=== PATIENT | male | born 1965 | race Hispanic/Latino ===

== ENCOUNTER 2017-08-01 05:56 | Emergency (ER) | payer MEDICAID, OTHER ==
[2017-08-01 05:56] VITALS: BMI 31.8
[2017-08-01] MEDS ORDERED: Alum-Mag Hydrox-Simethicone Susp (30 mL) PO STA (06:28)
[2017-08-01] MEDS ORDERED: Alum-Mag Hydrox-Simethicone Susp (30 mL) ONE (06:30)
--- NOTE | 2017-08-01 06:55 | ED PDOC ---
HPI: Abdomen Time Seen by Provider: 08/01/17 06:21 Chief Complaint (Nursing): Chest Pain Chief Complaint (Provider): Abdominal Pain History Per: Patient History/Exam Limitations: no limitations Onset/Duration Of Symptoms: Hrs (x8-10 hours) Outside of [place] travel?: No Current Symptoms Are (Timing): Still Present Context: Food (Pizza & V8 juice) Location Of Pain/Discomfort: Epigastric Associated Symptoms: Chest Pain. denies: Nausea, Vomiting, Back Pain Additional Complaint(s): 51 year old male presents to ED with complaints of epigastric pain x8-10 hours and has a past medical history of Hodgkins-Lymphoma and was recently diagnosed with GERD (taking Prilosec). Patient notes eating pizza and drinking V8 juice last night and experiencing subsequent epigastric pain that radiates to his chest. (-) radiation of pain to extremities or back, SOB, diaphoresis, nausea, or vomiting. PCP: Valente Lomax Past Medical History Reviewed: Historical Data, Nursing Documentation, Vital Signs Vital Signs: Last Vital Signs Temp 97.5 F L 08/01/17 06:11 Pulse 70 08/01/17 06:11 Resp 16 08/01/17 06:11 BP 185/81 H 08/01/17 06:11 Pulse Ox 99 08/01/17 07:01 - Medical History PMH: Anxiety, Depression, Pneumonia (2013 STILL COUGHING) Denies: Chronic Kidney Disease - Surgical History Surgical History: No Surg Hx Denies: Pacemaker - Family History Family History: States: Unknown Family Hx - Living Arrangements Living Arrangements: With Family - Home Medications Home Medications: Ambulatory Orders Medication Instructions Recorded Omeprazole [Omeprazole] 40 mg PO BID 12/15/15 Ondansetron HCl [Zofran] 8 mg PO Q8H PRN 12/15/15 - Allergies Allergies/Adverse Reactions: Allergies Allergy/AdvReac Type Severity Reaction Status Date / Time No Known Allergies Allergy Verified 08/01/17 06:11 Review of Systems ROS Statement: Except As Marked, All Systems Reviewed And Found Negative Constitutional: Negative for: Sweats Cardiovascular: Positive for: Chest Pain (abdominal pain radiates to chest) Gastrointestinal: Positive for: Abdominal Pain. Negative for: Nausea, Vomiting Musculoskeletal: Negative for: Back Pain, Hand Pain, Leg Pain Physical Exam - Reviewed Nursing Documentation Reviewed: Yes Vital Signs Reviewed: Yes - Physical Exam Appears: Positive for: Non-toxic, No Acute Distress Skin: Positive for: Normal Color, Warm, Dry Eye Exam: Positive for: Normal appearance ENT: Positive for: Normal ENT Inspection Neck: Positive for: Normal, Painless ROM Cardiovascular/Chest: Positive for: Regular Rate, Rhythm. Negative for: Murmur Respiratory: Positive for: Normal Breath Sounds. Negative for: Respiratory Distress Gastrointestinal/Abdominal: Positive for: Soft, Tenderness (epigastric tenderness). Negative for: Normal Exam Extremity: Positive for: Normal ROM. Negative for: Deformity Neurologic/Psych: Positive for: Alert, Oriented. Negative for: Motor/Sensory Deficits - ECG O2 Sat by Pulse Oximetry: 99 (RA) Pulse Ox Interpretation: Normal Medical Decision Making Medical Decision Makin Initial impression: 51 year old male with a history of Hodgkins Lymphoma with epigastric pain radiating to chest Initial plan: Likely gastritis or GERD but with r/o cardiac or pulmonary causes with blood work and CXR. * EKG * Labs * Trop I * PTT/PT * CXR * Lidocaine 2% viscous 15mL PO * Maalox Plus 30mL PO * Pepcid 20mg PO * Protonix Inj 40mg IVP * Re-eval 0700 Patient signed out to Dr. Cota pending ED work up. Scribe Attestation: Documented by Kayla Hinds acting as a scribe for Nhan Melissa MD. Scribe Attestation: All medical record entries made by the Scribe were at my direction and personally dictated by me. I have reviewed the chart and agree that the record accurately reflects my personal performance of the history, physical exam, medical decision making, and the department course for this patient. I have also personally directed, reviewed, and agree with the discharge instructions and disposition. Disposition - Clinical Impression Clinical Impression: Chest pain - Patient ED Disposition Is Patient to be Admitted: Transfer of Care - Disposition Disposition: Transfer of Care Disposition Time: 07:00 Condition: STABLE Forms: [employer] (Macedonian) Patient Signed Over To: Jermain Cota Handoff Comments: pending ED work up
[2017-08-01 07:04] LABS: BASO # 0.1 K/uL (0.0-0.2); BASO % 0.9 % (0.0-2.0); EOS # 0.2 K/uL (0.0-0.7); EOS % 2.3 % (0.0-4.0); HEMOGLOBIN 13.3 g/dL (12.0-18.0); LYMPH # 1.2 K/uL (1.0-4.3); LYMPH % 15.8 % (20.0-40.0); MEAN CELL VOLUME 86.7 fl (80.0-94.0); MEAN CORPUSCULAR HEMOGLOBIN 29.3 pg (27.0-31.0); MEAN CORPUSCULAR HGB CONC 33.8 g/dL (33.0-37.0); MEAN PLATELET VOLUME 7.9 fl (7.2-11.7); MONO % 12.9 % (0.0-10.0); NEUT # 5.2 K/uL (1.8-7.0); NEUT % 68.1 % (50.0-75.0); RBC 4.56 Mil/uL (4.40-5.90); RED CELL DISTRIBUTION WIDTH 15.3 % (11.5-14.5); WHITE BLOOD COUNT 7.6 K/uL (4.8-10.8)
[2017-08-01 07:13] LABS: BLOOD UREA NITROGEN 13 mg/dl (9-20); CALCIUM 9.3 mg/dL (8.4-10.2); GFR AFRICAN-AMERICAN > 60; GFR NON-AFRICAN AMERICAN > 60
[2017-08-01 07:15] LABS: INR 0.9 (0.9-1.2); PARTIAL THROMBOPLASTIN TIME 32.5 Seconds (25.6-37.1); PROTHROMBIN TIME 10.3 Seconds (9.8-13.1)
--- NOTE | 2017-08-01 07:36 | ED PDOC ---
- Laboratory Results Result Diagrams: 08/01/17 06:59 08/01/17 06:59 - ECG O2 Sat by Pulse Oximetry: 97 Medical Decision Making Medical Decision Makin:00 Patient care endorsed from Dr. Nhan Melissa to Dr. Jermain Cota pending four hour troponin. 09:16 Chest XR FINDINGS: LUNGS: No active pulmonary disease. PLEURA: No significant pleural effusion identified. No pneumothorax apparent. CARDIOVASCULAR: Normal. OSSEOUS STRUCTURES: No significant abnormalities. VISUALIZED UPPER ABDOMEN: Normal. OTHER FINDINGS: None. IMPRESSION: No acute cardiopulmonary disease appreciated. 12:10 Upon reevaluation, patient states to be feeling better. Second troponin results came back negative and the pt will be discharged. Scribe Attestation: Documented by Claudia Goldstein, acting as a scribe for Jermain Cota MD Provider Scribe Attestation: All medical entries made by the Scribe were at my direction and personally dictated by me. I have reviewed the chart and agree that the record accurately reflects my personal performance of the history, physical exam, medical decision making, and the department course for this patient. I have also personally directed, reviewed, and agree with the discharge instructions and disposition. Disposition - Clinical Impression Clinical Impression: Atypical chest pain - POA Present On Arrival: None - Disposition Disposition: Routine/Home Disposition Time: 12:00 Condition: IMPROVED Additional Instructions: follow up with your primary doctor in 1-2 days return to the ED With any worsening or concerning symptoms Instructions: Chest Pain That Is Not Caused by the Heart (DC) Forms: [employer] (Nigerien)
--- NOTE | 2017-08-01 09:18 | RAD ---
HISTORY: chest pain COMPARISON: No prior. TECHNIQUE: Chest PA and lateral FINDINGS: LUNGS: No active pulmonary disease. PLEURA: No significant pleural effusion identified. No pneumothorax apparent. CARDIOVASCULAR: Normal. OSSEOUS STRUCTURES: No significant abnormalities. VISUALIZED UPPER ABDOMEN: Normal. OTHER FINDINGS: None. IMPRESSION: No acute cardiopulmonary disease appreciated.
[2017-08-01 12:26] VITALS: BP 145/92; PULSE 74; RESP 16; TEMP 97.6
[2017-08-01 15:29] VITALS: O2SAT 97
--- NOTE | 2017-08-01 22:29 | CARD ---
APPROVED REPORT EKG Measurement Heart [id number] <Conclusion> Normal sinus rhythm Normal ECG
== END 2017-08-01 12:25 | disposition home or self-care (01) ==
LOC: H.ER 05:56
DX: R07.9 Chest pain, unspecified (principal); Z86.59 Personal history of other mental and behavioral disorders; Z85.71 Personal history of Hodgkin lymphoma
CPT/HCPCS: 71046; 80048; 84484; 85025; 85610; 85730; 93005; 96374; 99283; C9113

== ENCOUNTER 2017-08-18 22:13 | Emergency (ER) | payer MEDICAID ==
[2017-08-18 22:13] VITALS: BMI 31.8
[2017-08-18 22:54] VITALS: O2SAT 100
[2017-08-18] MEDS ORDERED: Iohexol 240 (50 ml) PO ONE (23:21)
[2017-08-18] MEDS ORDERED: Iohexol 240 (50 ml) ONE (23:29)
--- NOTE | 2017-08-18 23:29 | ED PDOC ---
HPI: Abdomen Time Seen by Provider: 08/18/17 23:02 Chief Complaint (Nursing): Abdominal Pain History Per: Patient History/Exam Limitations: no limitations Onset/Duration Of Symptoms: Hrs Outside of [place] travel?: No Current Symptoms Are (Timing): Still Present Severity: None Location Of Pain/Discomfort: Diffuse Quality Of Discomfort: Dull, Cramping Associated Symptoms: Loss Of Appetite. denies: Fever, Chills, Nausea, Vomiting , Diarrhea, Back Pain, Chest Pain Additional Complaint(s): Hx of Hodgekin's Lymphoma (in remission) presenting with diffuse abdominal pain. States it started at 11PM and went away at 12PM spontaneously. States at 4PM it came back and has persisted since, no better or worse. States he only consumed 3 bananas and a "small vanilla ice cream" because he wasn't hungry today. Admits to drinking alcohol last night but not today. States he has been eating "a lot of salads" for the past 2 weeks. No fevers, no urinary symptoms. Patient concerned about resurgence of his lymphoma, requesting CT scan. Past Medical History Reviewed: Historical Data, Nursing Documentation, Vital Signs Vital Signs: Last Vital Signs Temp 98.3 F 08/18/17 22:52 Pulse 72 08/18/17 22:52 Resp 16 08/18/17 22:52 BP 160/98 H 08/18/17 22:52 Pulse Ox 100 08/19/17 03:11 - Medical History PMH: Anxiety, Depression, Pneumonia Denies: Chronic Kidney Disease - Surgical History Surgical History: Denies: Pacemaker - Family History Family History: States: Unknown Family Hx - Home Medications Home Medications: Ambulatory Orders Medication Instructions Recorded Omeprazole [Omeprazole] 40 mg PO BID 12/15/15 Ondansetron HCl [Zofran] 8 mg PO Q8H PRN 12/15/15 traMADol [Ultram] 50 mg PO TID #12 tab 08/19/17 - Allergies Allergies/Adverse Reactions: Allergies Allergy/AdvReac Type Severity Reaction Status Date / Time No Known Allergies Allergy Verified 08/18/17 22:51 Review of Systems ROS Statement: Except As Marked, All Systems Reviewed And Found Negative Gastrointestinal: Positive for: Abdominal Pain Physical Exam - Reviewed Nursing Documentation Reviewed: Yes Vital Signs Reviewed: Yes - Physical Exam Appears: Positive for: Well, Non-toxic, No Acute Distress Head Exam: Positive for: ATRAUMATIC, NORMAL INSPECTION, NORMOCEPHALIC Skin: Positive for: Normal Color, Warm, DRY Eye Exam: Positive for: EOMI, Normal appearance, PERRL ENT: Positive for: Normal ENT Inspection Neck: Positive for: Normal, Painless ROM Cardiovascular/Chest: Positive for: Regular Rate, Rhythm Respiratory: Positive for: CNT, Normal Breath Sounds Gastrointestinal/Abdominal: Positive for: Normal Exam, Bowel Sounds, Soft, Tenderness (Diffuse tednerness to palpation throughout abdomen). Negative for: Organomegaly, Mass, Guarding, Rebound, Hernia, Asicites Back: Positive for: Normal Inspection Extremity: Positive for: Normal ROM Neurologic/Psych: Positive for: Alert, Oriented - Laboratory Results Result Diagrams: 08/18/17 23:20 08/18/17 23:20 - ECG O2 Sat by Pulse Oximetry: 100 Pulse Ox Interpretation: Normal Medical Decision Making Medical Decision MakinPM A/P: Hx of Hodgekin's Lymphoma presenting with abdominal pain -patient is well appearing, ambulatory, normal vitals -ddx: gas v. constipation v. possible resurgence of lymphoma v. less likely ruptured viscous organ, appendicitis, or other surgical abnormality -will get labs, CT -PPI for pain relief -reeval 0307 Abdomen/Pelvis CT FINDINGS: Lung bases: Atelectasis posterior lungs. ABDOMEN: Liver: Unremarkable. No mass. Gallbladder and bile ducts: Gallstones. Gallbladder otherwise normal. No ductal dilation. Pancreas: 6.5 cm cyst in the abdomen posterior to the pancreatic head. No ductal dilation. Spleen: Unremarkable. No splenomegaly. Adrenals: Unremarkable. No mass. Kidneys and ureters: Unremarkable. No solid mass. No hydronephrosis. Stomach and bowel: Mild fecal retention right colon. Diverticulosis in the colon without evidence of diverticulitis. No obstruction. PELVIS: Appendix: No findings to suggest acute appendicitis. Bladder: Unremarkable. No mass. Reproductive: Unremarkable as visualized. ABDOMEN and PELVIS: Intraperitoneal space: Unremarkable. No free air. No significant fluid collection. Bones/joints: No acute fracture. No dislocation. Soft tissues: Bilateral inguinal hernia repairs. Vasculature: Unremarkable. No abdominal aortic aneurysm. Lymph nodes: Scattered retroperitoneal and mesenteric lymph nodes a few of which are upper limits of normal in size. IMPRESSION: 1. Gallstones. Gallbladder otherwise normal. 2. 6.5 cm cyst in the abdomen posterior to the pancreatic head. This may be due to a pseudocyst. Pancreas is unremarkable in appearance. 3. Scattered retroperitoneal and mesenteric lymph nodes a few of which are upper limits of normal in size. 4. Mild fecal retention right colon. Patient is feeling better after second injection of toradol. Explained results to patient including elevated LFT's, patient states he's been drinking more alcohol than usual lately. Advised patient that he needs to cease drinking. Advised patient that he'll need bowel regimen as well to help relieve fecal retention, and gave copy of report so he can followup with GI/surgeon regarding gallstones. Patient asking for codeine to control pain, advised that codeine is a controlled substance, advised that he will get short course of tramadol and that he should only take it as absolutely needed, advised that narcotic pain killers can lead to addiction, patient understands this risk. Advised to followup with Dr. Lomax. Will give referral to GI. Disposition - Clinical Impression Clinical Impression: Gallstone - Disposition Referrals: Valente Lomax MD [Primary Care Provider] - Benny Gamble MD [Staff Provider] - Disposition: Routine/Home Disposition Time: 03:30 Condition: IMPROVED Prescriptions: traMADol [Ultram] 50 mg PO TID #12 tab Instructions: Gallstones, Acute Abdomen (Belly Pain), Adult (DC), Constipation in Adults Forms: [employer] (Ivorian)
[2017-08-18 23:32] LABS: BASO % 0.5 % (0.0-2.0); EOS % 0.6 % (0.0-4.0); LYMPH # 0.6 K/uL (1.0-4.3); MEAN CELL VOLUME 87.1 fl (80.0-94.0); MEAN CORPUSCULAR HEMOGLOBIN 28.4 pg (27.0-31.0); MEAN CORPUSCULAR HGB CONC 32.7 g/dL (33.0-37.0); MEAN PLATELET VOLUME 7.8 fl (7.2-11.7); MONO # 0.8 K/uL (0.0-0.8); MONO % 11.1 % (0.0-10.0); NEUT # 5.6 K/uL (1.8-7.0); NEUT % 78.8 % (50.0-75.0); PLATELET COUNT 254 K/uL (130-400); RBC 4.55 Mil/uL (4.40-5.90); RED CELL DISTRIBUTION WIDTH 15.4 % (11.5-14.5); WHITE BLOOD COUNT 7.2 K/uL (4.8-10.8)
[2017-08-18 23:44] LABS: ALBUMIN 3.8 g/dL (3.5-5.0); ALT/SGPT 121 U/L (21-72); AST/SGOT 230 U/L (17-59); BILIRUBIN,DIRECT 1.6 mg/ml (0.0-0.4); BLOOD UREA NITROGEN 15 mg/dl (9-20); CALCIUM 9.3 mg/dL (8.4-10.2); GFR AFRICAN-AMERICAN > 60; GFR NON-AFRICAN AMERICAN > 60
[2017-08-19] LABS: SQUAMOUS EPITHIAL 1 /hpf (0-5); URINE BILIRUBIN NEGATIVE (NEGATIVE); URINE BLOOD NEGATIVE (NEGATIVE); URINE CLARITY CLOUDY (Clear); URINE COLOR AMBER (YELLOW); URINE GLUCOSE (UA) NEG (Normal); URINE HYALINE CAST 0-2 /hpf (0-2); URINE LEUKOCYTE ESTERASE NEG Leu/uL (Negative); URINE PROTEIN 100 mg/dL (NEGATIVE)
[2017-08-19] MEDS ORDERED: Iohexol 300 100 ML IJ ONE (01:16)
[2017-08-19] MEDS ORDERED: Sodium Chloride 0.9% 50 ML IV ONE (01:16)
[2017-08-19 01:45] LABS: BANDS 1 % (0-2); EOSINOPHIL 1 % (0-7); LYMPHOCYTE 10 % (20-50); MONOCYTE 10 % (0-10); NEUTROPHIL 78 % (42-75); TOTAL CELLS COUNTED 100
[2017-08-19 01:46] LABS: PLATELET ESTIMATE NORMAL (NORMAL)
[2017-08-19 03:45] VITALS: BP 138/82; PULSE 76; RESP 17; TEMP 98.1
--- NOTE | 2017-08-19 10:44 | CT ---
PROCEDURE: CT Abdomen and Pelvis with contrast HISTORY: hx of lymphoma, diffuse abdominal pain COMPARISON: CT scan of the chest, abdomen and pelvis dated 12/27/2014 performed at [facility]. TECHNIQUE: Contrast dose: 95 mL Omnipaque 300 Radiation dose: Total exam DLP = 830.1 mGy-cm. This CT exam was performed using one or more of the following dose reduction techniques: Automated exposure control, adjustment of the mA and/or kV according to patient size, and/or use of iterative reconstruction technique. FINDINGS: LOWER THORAX: Unremarkable. LIVER: Diffuse hepatic steatosis. Small area of hypoattention relative to the remaining liver adjacent to the falciform ligament. No ductal dilatation. GALLBLADDER AND BILE DUCTS: Cholelithiasis. No gallbladder wall thickening or edema. PANCREAS: Unremarkable. No gross lesion or ductal dilatation. SPLEEN: Unremarkable. ADRENALS: Unremarkable. No mass. KIDNEYS AND URETERS: Unremarkable. No hydronephrosis. No solid mass. VASCULATURE: Unremarkable. No aortic aneurysm. BOWEL: Diverticulosis. No obstruction. No gross mural thickening. APPENDIX: Normal appendix. PERITONEUM: Prior bilateral inguinal hernia repair. No free fluid. No free air. LYMPH NODES: 6.6 x 3.1 cm portacaval lymph node. Numerous lymph nodes in the gastrohepatic ligament and surrounding the splenic artery. BLADDER: Unremarkable. REPRODUCTIVE: Unremarkable. BONES: No acute fracture. OTHER FINDINGS: None. IMPRESSION: Large 6.6 x 3.1 cm portacaval lymph node, this previously measured 7.2 x 4.4 cm. Numerous small lymph nodes in the gastrohepatic ligament and surrounding the splenic artery are new. Additional findings as above.
== END 2017-08-19 03:39 | disposition home or self-care (01) ==
LOC: H.ER 22:13
DX: K80.20 Calculus of gallbladder without cholecystitis without obstruction (principal); K59.00 Constipation, unspecified; K57.30 Diverticulosis of large intestine without perforation or abscess without bleeding; K40.20 Bilateral inguinal hernia, without obstruction or gangrene, not specified as recurrent; Z85.72 Personal history of non-Hodgkin lymphomas; F32.9 Major depressive disorder, single episode, unspecified; F41.9 Anxiety disorder, unspecified
CPT/HCPCS: 74177; 80053; 80320; 81003; 82248; 85025; 96374; 96375; 96376; 99284; C9113; J1885; Q9966; Q9967

== ENCOUNTER 2017-08-28 21:15 | Inpatient (IN) | payer MEDICAID ==
[2017-08-28 21:16] VITALS: BMI 31.8
[2017-08-28] MEDS ORDERED: Sodium Chloride 0.9% 1,000 ML IV STA (21:45)
[2017-08-28] MEDS ORDERED: Famotidine 20mg/50ml 20 MG/50 ML BAG IVPB STA (21:45)
--- NOTE | 2017-08-28 21:48 | ED PDOC ---
"HPI: Abdomen History Per: Patient History/Exam Limitations: no limitations Onset/Duration Of Symptoms: Hrs Outside of [place] travel?: No Current Symptoms Are (Timing): Still Present Severity: Severe Pain Scale Rating Of: 8 Location Of Pain/Discomfort: RUQ, Epigastric Quality Of Discomfort: Burning Associated Symptoms: Nausea. denies: Fever, Vomiting, Diarrhea Exacerbating Factors: None Alleviating Factors: None Last Bowel Movement: Today <Chelsea Blank - Last Filed: 08/29/17 00:47> <Robinson Mcnair - Last Filed: 08/31/17 16:38> Time Seen by Provider: 08/28/17 21:20 Chief Complaint (Nursing): Abdominal Pain Additional Complaint(s): CC: RUQ pain HPI: 51 YO Male with PMHx of hodgkins (remission), GERD, anxiety, and gallstones presents to [facility] ED for RUQ and epigastric pain. Pt states that he has had similar pain x the last two weeks. Pain reappeared this evening around 7PM, has been on/off since that time, describes the pain as cockily and burning in nature. Pain is rated as 8/10 currently and associated with nausea. Denies chest pain, dyspnea, vomiting, last BM this AM- normal, no symptoms, denies chills and reamins afebrile. Took a tramadol around 8PM, but did not help with the pain. Seen by GI, Dr. Gamble on 08/26/17 and has a follow up on 08/30/17 PMD: Dr. Sarah GI: Dr. Gamble PMHx: Hodgkins, GERD, gallstones SurgHx: inguinal hernia reapir x 2 FH: hx of HTN SH: ETOH 2xdaily (quit 1 week ago), denies smoking and illicit drug use Allergies: NKDA Meds: tramadol (Rosamaria,Chelsea) Supervising Attending Note <Chelsea Blank - Last Filed: 08/29/17 00:47> - Supervising Attending Note The Documented history was done by the: Physician Digital Forensic Analyst The documented physical exam was done by the: Physician Digital Forensic Analyst The documented procedures were done by the: Physician Digital Forensic Analyst - Attestation: I have personally seen and examined this patient.: Yes I have fully participated in the care of the patient.: Yes I have reviewed all pertinent clinical information: Yes <Robinson Mcnair - Last Filed: 08/31/17 16:38> - Notes: Notes:: abd pain (Robinson Mcnair) Past Medical History - Medical History PMH: Anxiety, Depression, Pneumonia Denies: Chronic Kidney Disease - Surgical History Surgical History: Denies: Pacemaker - Family History Family History: States: Unknown Family Hx <Chelsea Blank - Last Filed: 08/29/17 00:47> <Robinson Mcnair - Last Filed: 08/31/17 16:38> Vital Signs: Last Vital Signs Temp 98.8 F 08/30/17 08:15 Pulse 71 08/30/17 08:15 Resp 20 08/30/17 08:15 BP 124/79 08/30/17 08:15 Pulse Ox 96 08/30/17 08:15 - Home Medications Home Medications: Ambulatory Orders Medication Instructions Recorded traMADol [Ultram] 50 mg PO TID #12 tab 08/19/17 Omeprazole Magnesium [Prilosec Otc] 20 mg PO PRN PRN 08/29/17 Ketorolac Tromethamine [Toradol] 10 mg PO Q6 PRN #20 tab 08/30/17 - Allergies Allergies/Adverse Reactions: Allergies Allergy/AdvReac Type Severity Reaction Status Date / Time No Known Allergies Allergy Verified 08/29/17 00:49 Review of Systems Constitutional: Negative for: Fever, Chills Cardiovascular: Negative for: Chest Pain, Palpitations Respiratory: Negative for: Cough, Shortness of Breath Gastrointestinal: Positive for: Nausea, Abdominal Pain. Negative for: Vomiting , Diarrhea, Constipation Genitourinary Male: Negative for: Dysuria, Frequency, Hematuria Neurological: Negative for: Weakness, Confusion <Chelsea Blank - Last Filed: 08/29/17 00:47> Physical Exam - Physical Exam Appears: Positive for: In Acute Distress (pt expressive, loud moaning ) Skin: Positive for: Normal Color, Warm, Dry Eye Exam: Positive for: EOMI Cardiovascular/Chest: Positive for: Regular Rate, Rhythm. Negative for: Bradycardia, Tachycardia Respiratory: Positive for: Normal Breath Sounds. Negative for: Crackles, Rales , Wheezing Gastrointestinal/Abdominal: Positive for: Bowel Sounds, Soft, Tenderness (non- tender when distracted; tenderness throughout the epigastria and RUQ). Negative for: Distended, Guarding Back: Positive for: Normal Inspection. Negative for: L CVA Tenderness, R CVA Tenderness Extremity: Positive for: Normal ROM. Negative for: Tenderness, Pedal Edema Neurologic/Psych: Positive for: Alert, Gait (normal gait ) <Chelsea Blank - Last Filed: 08/29/17 00:47> - Physical Exam Cardiovascular/Chest: Positive for: Regular Rate, Rhythm Respiratory: Positive for: Normal Breath Sounds Gastrointestinal/Abdominal: Positive for: Tenderness (RUQ) <Robinson Mcnair - Last Filed: 08/31/17 16:38> - Laboratory Results Result Diagrams: 08/28/17 22:21 08/28/17 22:21 - ECG O2 Sat by Pulse Oximetry: 100 - CT Scan/US No standard instances Other Rad Interpretation: CLINICAL HISTORY: <Chelsea Blank - Last Filed: 08/29/17 00:47> - Laboratory Results Result Diagrams: 08/30/17 05:45 08/30/17 05:45 Interpretation Of Abn Labs: elevated liver enzymes <Robinson Mcnair - Last Filed: 08/31/17 16:38> - Progress ED Course And Treament: 51 YO Male with abdominal pain, likely biliary colic. -Toradol for pain -Zofran for nausea -famotidine -IVF -CBC, CMP -Ct abd and pelvis Pt seen and reexamined. States that his pain has sig improved, and nausea has resolved at this time Workup appreciated: sig for elevated liver enzymes with T bili of 3.9 Surgery consulted, GI consulted Will admit pt for abdominal pain, gallstones CT abd and pelvis CLINICAL HISTORY: 51 years old, male; Generalized abdominal pain. Bilateral inguinal hernia repair. TECHNIQUE: Axial computed tomography images of the abdomen and pelvis with intravenous contrast. All CT scans at this facility use at least one of these dose optimization techniques: automated exposure control; mA and/or kV adjustment per patient size (includes targeted exams where dose is matched to clinical indication); or iterative reconstruction. CONTRAST: 95 ml of [id number] administered intravenously. COMPARISON: CT - ABD PELVIS PO IV CONTRAST 2017-08-19 01:35 FINDINGS: Lower thorax: Small dependent atelectasis is noted at the lung bases. ABDOMEN: Liver: Enlarged liver measures 17.3 CM in the midclavicular line. Ill-defined hypoattenuation areas in the left hepatic lobe. Gallbladder and bile ducts: The gallbladder is distended with small calcified stones. Mild central biliary dilatation. Pancreas: Unremarkable pancreas. Spleen: Borderline splenic size. It measures 12.8 CM in maximal diameter. Adrenals: Normal. No mass. Kidneys and ureters: 8 mm small cortical cyst in the left upper pole kidney. Stomach and bowel: There are scattered diverticula in the left colon. No diverticulitis. Appendix: A normal caliber appendix is visualized. PELVIS: Bladder: The bladder is collapsed. Reproductive: The prostate gland and seminal vesicles are unremarkable. CARON KIM | Preliminary Radiology Report HOME IMPROVEMENT CONTRACTOR (QA) DISCREPANCY? If there is a discrepancy between the preliminary and final interpretation, please notify [email or web address] via [email or web address]. If you do not have access to our QA portal, call our QA team at [phone] CONFIDENTIALITY STATEMENT This report is intended only for the use of the referring physician, and only in accordance with law, If you received this in error, call [phone] Page 2 of 2 ABDOMEN and PELVIS: Intraperitoneal space: No ascites or free air. Retroperitoneal space: Oval soft tissue attenuation mass anterior to the IVC that measures 7.9 CM in CC x3.3 CM in AP x5.8 CM in transverse, not significantly changed. Punctate calcification in the posterior aspect of the mass. It causes significant compression of the IVC at the level of the renal veins. Bones/joints: Lucent defect in the left side of T11 vertebral body. Hypertrophic facet joints at the L2-3 through L5-S1. Narrowing of the neural foramina and lateral recesses at the L4-L5. Soft tissues: Soft tissue attenuation stranding and surgical clips in the bilateral inguinal canal. Vasculature: Small calcifications of the iliac and common femoral arteries. Lymph nodes: Enlarged vikram hepatis, celiac axis, peripancreatic, retrocaval, left para-aortic, and right common iliac lymph nodes. The largest lymph node measures 1.8 CM in the vikram hepatis. Small soft tissue attenuation nodules surrounding the spleen. Compared to the previous study, there is no interval change. IMPRESSION: 1. Gallstones and mild central biliary dilatation. 2. 7.9x3.3x5.8 CM soft tissue attenuation mass anterior to the IVC, not significantly changed. It represent a retroperitoneal tumor. 3. Abdominal and pelvic adenopathy. 4. Enlarged liver with ill-defined hypoattenuation areas in the left hepatic lobe. They could represent areas of focal fatty infiltration. 5. Lucent lesion in the left T11 vertebral body. Lytic tumor is not excluded. Pt discussed with surgery, NPO after midnight, MRCP in AM. (Chelsea Blank) Disposition - Patient ED Disposition Is Patient to be Admitted: Yes - Disposition Disposition Time: 00:48 <Chelsea Blank - Last Filed: 08/29/17 00:47> - Patient ED Disposition Is Patient to be Admitted: Yes <Robinson Mcnair - Last Filed: 08/31/17 16:38> - Clinical Impression Clinical Impression: Gallstone, Abdominal pain - Disposition Condition: STABLE"
[2017-08-28] MEDS ORDERED: Famotidine 20mg/50ml 20 MG/50 ML BAG IVPB ONE (21:59)
[2017-08-28 22:26] LABS: BASO # 0.1 K/uL (0.0-0.2); BASO % 0.9 % (0.0-2.0); EOS % 0.5 % (0.0-4.0); HEMOGLOBIN 14.2 g/dL (12.0-18.0); LYMPH # 0.8 K/uL (1.0-4.3); LYMPH % 8.3 % (20.0-40.0); MEAN CELL VOLUME 85.6 fl (80.0-94.0); MEAN CORPUSCULAR HEMOGLOBIN 28.4 pg (27.0-31.0); MEAN CORPUSCULAR HGB CONC 33.2 g/dL (33.0-37.0); MEAN PLATELET VOLUME 8.3 fl (7.2-11.7); MONO # 0.9 K/uL (0.0-0.8); MONO % 9.6 % (0.0-10.0); NEUT # 7.6 K/uL (1.8-7.0); NEUT % 80.7 % (50.0-75.0); PLATELET COUNT 369 K/uL (130-400); RBC 4.99 Mil/uL (4.40-5.90); WHITE BLOOD COUNT 9.5 K/uL (4.8-10.8)
[2017-08-28 22:56] LABS: BANDS 2 % (0-2); LYMPHOCYTE 10 % (20-50); MONOCYTE 7 % (0-10); NEUTROPHIL 81 % (42-75); PLATELET ESTIMATE NORMAL (NORMAL); TOTAL CELLS COUNTED 100
[2017-08-28] MEDS ORDERED: Iohexol 300 100 ML IJ ONE (23:00)
[2017-08-28] MEDS ORDERED: Sodium Chloride 0.9% 50 ML IV ONE (23:01)
[2017-08-28 23:02] LABS: ALB/GLOB RATIO 0.9 (1.0-2.1); ALBUMIN 4.1 g/dL (3.5-5.0); ALT/SGPT 200 U/L (21-72); AST/SGOT 271 U/L (17-59); BLOOD UREA NITROGEN 18 mg/dl (9-20); CALCIUM 9.5 mg/dL (8.4-10.2); GFR AFRICAN-AMERICAN > 60; GFR NON-AFRICAN AMERICAN > 60; LIPASE 44 U/L (23-300)
--- NOTE | 2017-08-29 00:44 | CP.PCM.CON ---
<Kiya Irving - Last Filed: 08/29/17 01:15> History of Present Illness - History of Present Illness History of Present Illness: General surgery consult note for Dr. Eliezer Irving, PGY-2 Pt S & E at bedside at 0015 51M w/PMH sig for GERD consulted for epigastric pain x 1 day. Pt reports onset of epigastric pain with radiation to RUQ/periumbilical area after eating a blueberry turnover on day of evaluation AM. Pain went away after eating, then recurred that PM after eating pasta with spinach at approximately 7:30pm. Pt states pain was severe, constant after 2nd onset, described as stabbing. Alleviated by Toradol in ED. Admits to previous episode of similar on 08/18 after eating ice cream, with alleviation also with Toradol. Admits to nausea with pain, cough, constipation, some diarrhea. Denies F & C, headache, emesis, changes in urinary habits, other complaints. PMH: Hodgkin's lymphoma (remission), GERD, anxiety, depression, hx PNA PSH: Right inguinal hernia repair with mesh All: NKDA SH: Admits to ETOH use- none since 08/18/17; was using 2-3 drinks daily x years, denies tobacco or illicit drug use FH: Non contributory Outpatient GI: Dr. Gamble Review of Systems - Review of Systems All systems: reviewed and no additional remarkable complaints except - Constitutional Constitutional: absent: Chills, Fever - EENT Eyes: absent: Change in Vision Ears: absent: Dizziness Nose/Mouth/Throat: absent: Sore Throat - Cardiovascular Cardiovascular: absent: Chest Pain - Respiratory Respiratory: absent: Cough - Gastrointestinal Gastrointestinal: Abdominal Pain, Change in Bowel Habits, Constipation, Diarrhea , Nausea. absent: Hematemesis, Hematochezia, Melena, Vomiting - Genitourinary Genitourinary: absent: Change in Urinary Stream, Flank Pain, Hematuria - Musculoskeletal Musculoskeletal: absent: Back Pain, Numbness, Tingling - Integumentary Integumentary: absent: Rash - Neurological Neurological: Numbness (left hand- chronic). absent: Tingling - Psychiatric Psychiatric: absent: Change in Appetite Past Patient History - Past Medical History & Family History Past Medical History?: Yes - Past Social History Smoking Status: Never Smoked - CARDIAC Hx Pacemaker: No - PULMONARY Hx Pneumonia: Yes - NEUROLOGICAL Hx Paralysis: No - HEENT Hx HEENT Problems: Yes (GLASSES) Hx Macular Degeneration: Yes (MAYBE?) - RENAL Hx Chronic Kidney Disease: No - ENDOCRINE/METABOLIC Hx Endocrine Disorders: No - HEMATOLOGICAL/ONCOLOGICAL Hx Blood Transfusions: No Hx Blood Transfusion Reaction: No - INTEGUMENTARY Hx Dermatological Problems: Yes Hx Eczema: Yes - MUSCULOSKELETAL/RHEUMATOLOGICAL Hx Musculoskeletal Disorders: No - GASTROINTESTINAL Hx Gastrointestinal Disorders: No - GENITOURINARY/GYNECOLOGICAL Hx Genitourinary Disorders: No - PSYCHIATRIC Hx Anxiety: Yes Hx Depression: Yes - SURGICAL HISTORY Hx Surgeries: Yes Hx Herniorrhaphy: Yes (2 inguinal hernia) - ANESTHESIA Hx Anesthesia: Yes Hx Anesthesia Reactions: No Hx Malignant Hyperthermia: No Meds Allergies/Adverse Reactions: Allergies Allergy/AdvReac Type Severity Reaction Status Date / Time No Known Allergies Allergy Verified 08/29/17 00:49 Physical Exam - Constitutional Appears: Non-toxic, No Acute Distress - Head Exam Head Exam: ATRAUMATIC, NORMAL INSPECTION, NORMOCEPHALIC - Eye Exam Eye Exam: EOMI, Normal appearance - ENT Exam ENT Exam: Mucous Membranes Moist, Normal Exam - Neck Exam Neck exam: Positive for: Full Rom, Normal Inspection - Respiratory Exam Respiratory Exam: Clear to Auscultation Bilateral, NORMAL BREATHING PATTERN. absent: Rales, Rhonchi, Wheezes, Respiratory Distress - Cardiovascular Exam Cardiovascular Exam: REGULAR RHYTHM, +S1, +S2 - GI/Abdominal Exam GI & Abdominal Exam: Normal Bowel Sounds, Soft, Tenderness (mild, RUQ). absent : Distended, Firm, Guarding, Hernia, Rigid - Rectal Exam Rectal Exam: Deferred - Extremities Exam Extremities exam: Positive for: normal inspection. Negative for: tenderness - Neurological Exam Neurological exam: Alert, CN II-XII Intact, Oriented x3 - Psychiatric Exam Psychiatric exam: Normal Affect, Normal Mood - Skin Skin Exam: Dry, Intact, Normal Color, Warm Results - Vital Signs Recent Vital Signs: Last Vital Signs Temp 98.4 F 08/29/17 00:10 Pulse 67 08/29/17 00:10 Resp 16 08/29/17 00:10 BP 130/80 08/29/17 00:10 Pulse Ox 100 08/29/17 00:36 - Labs Result Diagrams: 08/28/17 22:21 08/28/17 22:21 Labs: Laboratory Results - last 24 hr 08/28/17 08/28/17 22:21 22:21 WBC 9.5 RBC 4.99 Hgb 14.2 Hct 42.7 MCV 85.6 MCH 28.4 MCHC 33.2 RDW 15.0 H Plt Count 369 D MPV 8.3 Neut % (Auto) 80.7 H Lymph % (Auto) 8.3 L [place] % (Auto) 9.6 Eos % (Auto) 0.5 Baso % (Auto) 0.9 Neut # (Auto) 7.6 H Lymph # (Auto) 0.8 L [place] # (Auto) 0.9 H Eos # (Auto) 0.0 Baso # (Auto) 0.1 Neutrophils % (Manual) 81 H Band Neutrophils % 2 Lymphocytes % (Manual) 10 L Monocytes % (Manual) 7 Platelet Estimate Normal RBC Morphology Normal Sodium 141 Potassium 4.5 Chloride 102 Carbon Dioxide 26 Anion Gap 18 BUN 18 Creatinine 1.2 Est GFR ( Amer) > 60 Est GFR (Non-Af Amer) > 60 Random Glucose 143 H Calcium 9.5 Total Bilirubin 3.9 H AST 271 H ALT 200 H D Alkaline Phosphatase 227 H D Total Protein 8.6 H Albumin 4.1 Globulin 4.5 H Albumin/Globulin Ratio 0.9 L Lipase 44 Assessment & Plan - Assessment and Plan (Free Text) Assessment: 51M w/PMH sig for cholelithiasis consulted for epigastric/RUQ ab pain due to symptomatic cholelithiasis in setting of hyperbilirubinemia Plan: Pain control Anti-emetic NPO pMN FU MRCP GI recs FU AM labs Further recs pending imaging results/attending evaluation DW attending Maria Fernanda, PGY-2 - Date & Time Date: 08/29/17 Time: 00:50 <Reggie Courtney - Last Filed: 08/29/17 17:57> History of Present Illness - History of Present Illness History of Present Illness: Patient was seen and examined at the bedside. Agree with resident's note above. Currently denies any abdominal pain. Meds - Medications Medications: Current Medications Sodium Chloride (Sodium Chloride 0.9%) 1,000 mls @ 150 mls/hr IV .Q6H40M [facility] Stop: 08/30/17 09:01 Last Admin: 08/29/17 16:09 Dose: Not Given Morphine Sulfate (Morphine) 2 mg IVP Q4 PRN PRN Reason: Pain, moderate (4-7) Morphine Sulfate (Morphine) 4 mg IVP Q4 PRN PRN Reason: Pain, severe (8-10) Ondansetron HCl (Zofran Inj) 4 mg IVP Q6 PRN PRN Reason: Nausea/Vomiting Pantoprazole Sodium (Protonix Inj) 40 mg IVP DAILY VANESSA Last Admin: 08/29/17 10:38 Dose: 40 mg Results - Vital Signs Recent Vital Signs: Last Vital Signs Temp 97.8 F 08/29/17 16:16 Pulse 68 08/29/17 16:16 Resp 18 08/29/17 16:16 BP 122/76 08/29/17 16:16 Pulse Ox 96 08/29/17 16:16 - Labs Result Diagrams: 08/29/17 05:45 08/29/17 05:45 Labs: Laboratory Results - last 24 hr 08/28/17 08/28/17 08/29/17 22:21 22:21 05:45 WBC 9.5 7.8 RBC 4.99 4.36 L Hgb 14.2 12.6 Hct 42.7 37.6 MCV 85.6 86.2 MCH 28.4 28.8 MCHC 33.2 33.4 RDW 15.0 H 15.4 H Plt Count 369 D 338 MPV 8.3 8.0 Neut % (Auto) 80.7 H 75.7 H Lymph % (Auto) 8.3 L 12.4 L [place] % (Auto) 9.6 10.9 H Eos % (Auto) 0.5 0.7 Baso % (Auto) 0.9 0.3 Neut # (Auto) 7.6 H 5.9 Lymph # (Auto) 0.8 L 1.0 [place] # (Auto) 0.9 H 0.9 H Eos # (Auto) 0.0 0.1 Baso # (Auto) 0.1 0.0 Neutrophils % (Manual) 81 H Band Neutrophils % 2 Lymphocytes % (Manual) 10 L Monocytes % (Manual) 7 Platelet Estimate Normal RBC Morphology Normal Sodium 141 Potassium 4.5 Chloride 102 Carbon Dioxide 26 Anion Gap 18 BUN 18 Creatinine 1.2 Est GFR ( Amer) > 60 Est GFR (Non-Af Amer) > 60 Random Glucose 143 H Calcium 9.5 Total Bilirubin 3.9 H AST 271 H ALT 200 H D Alkaline Phosphatase 227 H D Total Protein 8.6 H Albumin 4.1 Globulin 4.5 H Albumin/Globulin Ratio 0.9 L Lipase 44 08/29/17 05:45 WBC RBC Hgb Hct MCV MCH MCHC RDW Plt Count MPV Neut % (Auto) Lymph % (Auto) [place] % (Auto) Eos % (Auto) Baso % (Auto) Neut # (Auto) Lymph # (Auto) [place] # (Auto) Eos # (Auto) Baso # (Auto) Neutrophils % (Manual) Band Neutrophils % Lymphocytes % (Manual) Monocytes % (Manual) Platelet Estimate RBC Morphology Sodium 141 Potassium 4.7 Chloride 102 Carbon Dioxide 27 Anion Gap 17 BUN 18 Creatinine 1.1 Est GFR ( Amer) > 60 Est GFR (Non-Af Amer) > 60 Random Glucose 115 H Calcium 9.0 Total Bilirubin 3.7 H AST 229 H ALT 221 H Alkaline Phosphatase 202 H Total Protein 7.7 Albumin 3.6 Globulin 4.0 H Albumin/Globulin Ratio 0.9 L Lipase - Imaging and Cardiology CT scan - abdomen Status: Image reviewed by me, Report reviewed by me Assessment & Plan - Assessment and Plan (Free Text) Plan: - Clear liquid diet - Pain control - Zofran prn - Oncology consultation - Repeat labs in am - Will follow
[2017-08-29 06:29] LABS: BASO % 0.3 % (0.0-2.0); EOS # 0.1 K/uL (0.0-0.7); EOS % 0.7 % (0.0-4.0); HEMOGLOBIN 12.6 g/dL (12.0-18.0); LYMPH % 12.4 % (20.0-40.0); MEAN CELL VOLUME 86.2 fl (80.0-94.0); MEAN CORPUSCULAR HEMOGLOBIN 28.8 pg (27.0-31.0); MEAN CORPUSCULAR HGB CONC 33.4 g/dL (33.0-37.0); MONO # 0.9 K/uL (0.0-0.8); MONO % 10.9 % (0.0-10.0); NEUT # 5.9 K/uL (1.8-7.0); NEUT % 75.7 % (50.0-75.0); NRBC % 0.1 % (0.0-0.0); RBC 4.36 Mil/uL (4.40-5.90); RED CELL DISTRIBUTION WIDTH 15.4 % (11.5-14.5); WHITE BLOOD COUNT 7.8 K/uL (4.8-10.8)
[2017-08-29 06:41] LABS: ALB/GLOB RATIO 0.9 (1.0-2.1); ALBUMIN 3.6 g/dL (3.5-5.0); ALT/SGPT 221 U/L (21-72); AST/SGOT 229 U/L (17-59); BLOOD UREA NITROGEN 18 mg/dl (9-20); GFR AFRICAN-AMERICAN > 60; GFR NON-AFRICAN AMERICAN > 60
--- NOTE | 2017-08-29 08:41 | CP.PCM.HP ---
History of Present Illness - History of Present Illness History of Present Illness: pt admitted for ruq pain, no f/c, n/v/d at present. has h/o cholelithiasis. lft, bili noted. pt is npo for mrcp. surgical note appriciated. gi pending. Present on Admission - Present on Admission Any Indicators Present on Admission: No Review of Systems - Gastrointestinal Gastrointestinal: As Per HPI, Abdominal Pain Past Patient History - Past Medical History & Family History Past Medical History?: Yes - Past Social History Smoking Status: Never Smoked - CARDIAC Hx Cardiac Disorders: No Hx Pacemaker: No - PULMONARY Hx Respiratory Disorders: Yes Hx Pneumonia: Yes - NEUROLOGICAL Hx Neurological Disorder: No Hx Paralysis: No - HEENT Hx HEENT Problems: Yes (GLASSES) - RENAL Hx Chronic Kidney Disease: No - ENDOCRINE/METABOLIC Hx Endocrine Disorders: No - HEMATOLOGICAL/ONCOLOGICAL Hx Blood Transfusions: No Hx Blood Transfusion Reaction: No - INTEGUMENTARY Hx Dermatological Problems: Yes Hx Eczema: Yes - MUSCULOSKELETAL/RHEUMATOLOGICAL Hx Musculoskeletal Disorders: No Hx Falls: No - GASTROINTESTINAL Hx Gastrointestinal Disorders: Yes Hx Gastroesophageal Reflux: Yes - GENITOURINARY/GYNECOLOGICAL Hx Genitourinary Disorders: No - PSYCHIATRIC Hx Psychophysiologic Disorder: Yes Hx Anxiety: Yes Hx Depression: Yes Hx Substance Use: No - SURGICAL HISTORY Hx Surgeries: Yes Hx Herniorrhaphy: Yes (2 inguinal hernia) - ANESTHESIA Hx Anesthesia: Yes Hx Anesthesia Reactions: No Hx Malignant Hyperthermia: No Meds Allergies/Adverse Reactions: Allergies Allergy/AdvReac Type Severity Reaction Status Date / Time No Known Allergies Allergy Verified 08/29/17 00:49 Physical Exam - Constitutional Appears: Well, Non-toxic, No Acute Distress - Head Exam Head Exam: ATRAUMATIC, NORMAL INSPECTION, NORMOCEPHALIC - Eye Exam Eye Exam: EOMI, Normal appearance, PERRL Pupil Exam: NORMAL ACCOMODATION, PERRL - ENT Exam ENT Exam: Mucous Membranes Moist, Normal Exam - Neck Exam Neck exam: Positive for: Normal Inspection - Respiratory Exam Respiratory Exam: Clear to Auscultation Bilateral, NORMAL BREATHING PATTERN - Cardiovascular Exam Cardiovascular Exam: REGULAR RHYTHM, RRR, +S1, +S2 - GI/Abdominal Exam GI & Abdominal Exam: Normal Bowel Sounds, Soft. absent: Tenderness - Extremities Exam Extremities exam: Positive for: full ROM, normal capillary refill, normal inspection, pedal pulses present - Back Exam Back exam: NORMAL INSPECTION - Neurological Exam Neurological exam: Alert, CN II-XII Intact, Normal Gait, Oriented x3, Reflexes Normal - Psychiatric Exam Psychiatric exam: Normal Affect, Normal Mood - Skin Skin Exam: Dry, Intact, Normal Color, Warm Results - Vital Signs Recent Vital Signs: Last Vital Signs Temp 97.5 F L 08/29/17 07:58 Pulse 63 08/29/17 07:58 Resp 20 08/29/17 07:58 BP 111/72 08/29/17 07:58 Pulse Ox 95 08/29/17 07:58 - Labs Result Diagrams: 08/29/17 05:45 08/29/17 05:45 Labs: Laboratory Results - last 24 hr 08/28/17 08/28/17 08/29/17 22:21 22:21 05:45 WBC 9.5 7.8 RBC 4.99 4.36 L Hgb 14.2 12.6 Hct 42.7 37.6 MCV 85.6 86.2 MCH 28.4 28.8 MCHC 33.2 33.4 RDW 15.0 H 15.4 H Plt Count 369 D 338 MPV 8.3 8.0 Neut % (Auto) 80.7 H 75.7 H Lymph % (Auto) 8.3 L 12.4 L [place] % (Auto) 9.6 10.9 H Eos % (Auto) 0.5 0.7 Baso % (Auto) 0.9 0.3 Neut # (Auto) 7.6 H 5.9 Lymph # (Auto) 0.8 L 1.0 [place] # (Auto) 0.9 H 0.9 H Eos # (Auto) 0.0 0.1 Baso # (Auto) 0.1 0.0 Neutrophils % (Manual) 81 H Band Neutrophils % 2 Lymphocytes % (Manual) 10 L Monocytes % (Manual) 7 Platelet Estimate Normal RBC Morphology Normal Sodium 141 Potassium 4.5 Chloride 102 Carbon Dioxide 26 Anion Gap 18 BUN 18 Creatinine 1.2 Est GFR ( Amer) > 60 Est GFR (Non-Af Amer) > 60 Random Glucose 143 H Calcium 9.5 Total Bilirubin 3.9 H AST 271 H ALT 200 H D Alkaline Phosphatase 227 H D Total Protein 8.6 H Albumin 4.1 Globulin 4.5 H Albumin/Globulin Ratio 0.9 L Lipase 44 08/29/17 05:45 WBC RBC Hgb Hct MCV MCH MCHC RDW Plt Count MPV Neut % (Auto) Lymph % (Auto) [place] % (Auto) Eos % (Auto) Baso % (Auto) Neut # (Auto) Lymph # (Auto) [place] # (Auto) Eos # (Auto) Baso # (Auto) Neutrophils % (Manual) Band Neutrophils % Lymphocytes % (Manual) Monocytes % (Manual) Platelet Estimate RBC Morphology Sodium 141 Potassium 4.7 Chloride 102 Carbon Dioxide 27 Anion Gap 17 BUN 18 Creatinine 1.1 Est GFR ( Amer) > 60 Est GFR (Non-Af Amer) > 60 Random Glucose 115 H Calcium 9.0 Total Bilirubin 3.7 H AST 229 H ALT 221 H Alkaline Phosphatase 202 H Total Protein 7.7 Albumin 3.6 Globulin 4.0 H Albumin/Globulin Ratio 0.9 L Lipase Assessment & Plan (1) Cholelithiasis Assessment and Plan: pain control npo ivf gi/surgery mrcp today Status: Acute (2) Elevated LFTs Assessment and Plan: r/t cholelithiasis, mrcp, f/u b/w, ivf Status: Acute (3) Elevated bilirubin Assessment and Plan: ivf monitor Status: Acute (4) DVT prophylaxis Assessment and Plan: scd nad ae hose ambulation Status: Acute Decision To Admit - Pt Status Changed To: Hospital Disposition Of: Inpatient - Admit Certification Admit to Inpatient:: After my assessment, the patient will require hospitalization for at least two midnights. This is because of the severity of symptoms shown, intensity of services needed, and/or the medical risk in this patient being treated as an outpatient. - . Bed Request Type: Med/Surg Admitting Physician: Rayo Bhandari
--- NOTE | 2017-08-29 10:18 | CP.PCM.PN ---
Subjective - Date & Time of Evaluation Date of Evaluation: 08/29/17 Time of Evaluation: 10:12 - Subjective Subjective: General surgery for Dr. Tomlinson Pt seen and examined this AM. Addendum to resident's consult note. Pt has a hx of bilateral inguinal hernia repairs, (not only the right inguinal hernias as stated in note). Pt with a hx Hodgkin's Lymphoma, with his last chemotherapy in 05/2015. He follows up with Dr. Ruddy Bojorquez. Pt has been made aware during this admission that his LFTs were elevated, however pt cannot recall if he had them elevated recently. As per chart review, pt with his last LFTs measured in this hospital on 11/2015, which only had his ALT abnormal at 57 and T.Bili 1.4. Pt had been doing heavy drinking per chart review as well and stopped drinking 1 week ago. He reports feeling a lot better today. He denies having abdominal pain, nausea or vomiting today. Pt for MRCP now. Labs and vitals reviewed. CT reviewed: mass with no significant change from 08/19. 7.9x 3.3 x 5.8cm mass anterior to the IVC, represents a "retroperitoneal tumor". PE Gen: Laying in bed in NAD Skin: warm and dry, normal color Cardio: s1s2 rrr Lungs: CTA bilaterally Abd: Soft NTND A/P Cholelithiasis/biliary colic - Keep NPO for now - Follow up with MRCP results - No surgical intervention at this time until worked up by heme/onc for mass Retroperitoneal tumor - Recommend consulting Dr. Bojorquez Objective - Vital Signs/Intake and Output Vital Signs (last 24 hours): Temp Pulse Resp BP Pulse Ox 97.5 F L 63 20 111/72 95 08/29/17 07:58 08/29/17 07:58 08/29/17 07:58 08/29/17 07:58 08/29/17 07:58 - Medications Medications: Current Medications Sodium Chloride (Sodium Chloride 0.9%) 1,000 mls @ 150 mls/hr IV .Q6H40M [facility] Stop: 08/30/17 09:01 Morphine Sulfate (Morphine) 2 mg IVP Q4 PRN PRN Reason: Pain, moderate (4-7) Morphine Sulfate (Morphine) 4 mg IVP Q4 PRN PRN Reason: Pain, severe (8-10) Ondansetron HCl (Zofran Inj) 4 mg IVP Q6 PRN PRN Reason: Nausea/Vomiting Pantoprazole Sodium (Protonix Inj) 40 mg IVP DAILY VANESSA - Labs Labs: 08/29/17 05:45 08/29/17 05:45
[2017-08-29] MEDS: Sodium Chloride 0.9% 1,000 ML IV SCH ×4 (10:38→23:27)
--- NOTE | 2017-08-29 11:43 | CT ---
PROCEDURE: CT Abdomen and Pelvis with contrast HISTORY: abd pain COMPARISON: CT scan of the abdomen and pelvis dated 08/19/2017. TECHNIQUE: Contrast dose: 95 mL Omnipaque 300 Radiation dose: Total exam DLP = 617.9 mGy-cm. This CT exam was performed using one or more of the following dose reduction techniques: Automated exposure control, adjustment of the mA and/or kV according to patient size, and/or use of iterative reconstruction technique. FINDINGS: LOWER THORAX: Unremarkable. LIVER: Diffuse hepatic steatosis. Small area of hypoattenuation noted to the remaining liver adjacent to the falciform ligament. No ductal dilatation. GALLBLADDER AND BILE DUCTS: Minimal cholelithiasis. No gallbladder wall thickening or edema. PANCREAS: Unremarkable. No gross lesion or ductal dilatation. SPLEEN: Unremarkable. ADRENALS: Unremarkable. No mass. KIDNEYS AND URETERS: Unremarkable. No hydronephrosis. No solid mass. VASCULATURE: Unremarkable. No aortic aneurysm. BOWEL: Colonic diverticulosis. No obstruction. No gross mural thickening. APPENDIX: Normal appendix. PERITONEUM: Prior bilateral inguinal hernia repair. No free fluid. No free air. LYMPH NODES: 6.6 x 3.1 cm portal caval lymph node. Numerous lymph nodes in the gastrohepatic ligament and surrounding the splenic artery. No enlarged lymph nodes. BLADDER: Unremarkable. REPRODUCTIVE: Unremarkable. BONES: No acute fracture. Stable small hypoattenuating lesion in T11. OTHER FINDINGS: None. IMPRESSION: Stable appearance of large 6.6 x 3.1 cm portacaval lymph node. Numerous small lymph nodes in the gastrohepatic ligament and surrounding splenic artery, grossly unchanged. Stable findings as above. No significant interval change.
--- NOTE | 2017-08-29 12:05 | US ---
HISTORY: RUQ pain and epigastric pain COMPARISON: None. TECHNIQUE: Sonographic evaluation of the right upper quadrant of the abdomen. FINDINGS: LIVER: Measures 17.0 cm in length. Increased echogenicity of the liver parenchyma. No mass. No intrahepatic bile duct dilatation. GALLBLADDER: Cholelithiasis without gallbladder wall thickening/edema or pericholecystic fluid. Sonographic Mackey sign was not elicited. COMMON BILE DUCT: Measures 5 mm. No stones. No dilatation. PANCREAS: Unremarkable as visualized. No mass. No ductal dilatation. RIGHT KIDNEY: Measures 11.3 x 4.7 x 4.2 cm in length. Normal echogenicity. No calculus, mass, or hydronephrosis. AORTA: No aneurysmal dilatation. IVC: Unremarkable. OTHER FINDINGS: None . IMPRESSION: Diffuse hepatic steatosis. Otherwise, unremarkable right upper quadrant ultrasound Cholelithiasis without sonographic evidence for acute cholecystitis.
--- NOTE | 2017-08-29 14:44 | MRI ---
PROCEDURE: Magnetic Resonance Cholangiopancreatography HISTORY: COMPARISON: None available. TECHNIQUE: Multiplanar, multisequence MR images of the abdomen were obtained, including heavily T2 weighted MRCP images of the biliary system. Rotating maximum intensity projection images of the biliary system were generated. FINDINGS: MRCP: The common bile duct is of a normal caliber. No evidence of choledocholithiasis. No intrahepatic biliary ductal dilatation. LIVER: Normal size and contour. There is mild diffuse signal loss on opposed phase imaging consistent with fatty infiltration. No mass. GALLBLADDER: Cholelithiasis. No mural thickening. No pericholecystic fluid/ edema. SPLEEN: Unremarkable. PANCREAS: Unremarkable. ADRENALS: Unremarkable. KIDNEYS: Unremarkable. AORTA: No aneurysm. ASCITES: None. OTHER FINDINGS: There is a portacaval soft tissue mass, likely an enlarged lymph node, measuring 4.5 x 6.5 x 9.7 cm. There are numerous mildly enlarged retroperitoneal and gastrohepatic ligament lymph nodes. IMPRESSION: Cholelithiasis without evidence of cholecystitis. No evidence of biliary obstruction. No evidence of choledocholithiasis. Mild diffuse fatty infiltration of the liver. 9.7 cm soft tissue mass in the portacaval region, likely an enlarged lymph node. Multiple mildly enlarged gastrohepatic ligament and retroperitoneal lymph nodes. Significance uncertain.
--- NOTE | 2017-08-29 20:11 | CP.PCM.CON ---
History of Present Illness - History of Present Illness History of Present Illness: 51 yo male with h/o Hodgkins admitted with midabdominal pain on and off over past 2 weeks. Patient recently seen in ER with similar symptoms and found to have gallstones. Pain in midabdominal with radiation to back. No fever or chills.Currently not using alcohol.. Review of Systems - Constitutional Constitutional: absent: Chills - EENT Eyes: absent: Blurred Vision Ears: absent: Decreased Hearing Nose/Mouth/Throat: absent: Epistaxis - Cardiovascular Cardiovascular: absent: Chest Pain - Respiratory Respiratory: absent: Cough - Gastrointestinal Gastrointestinal: As Per HPI - Genitourinary Genitourinary: absent: Change in Urinary Stream Past Patient History - Past Medical History & Family History Past Medical History?: Yes - Past Social History Smoking Status: Never Smoked - CARDIAC Hx Cardiac Disorders: No Hx Pacemaker: No - PULMONARY Hx Respiratory Disorders: Yes Hx Pneumonia: Yes - NEUROLOGICAL Hx Neurological Disorder: No Hx Paralysis: No - HEENT Hx HEENT Problems: Yes (GLASSES) - RENAL Hx Chronic Kidney Disease: No - ENDOCRINE/METABOLIC Hx Endocrine Disorders: No - HEMATOLOGICAL/ONCOLOGICAL Hx Blood Transfusions: No Hx Blood Transfusion Reaction: No - INTEGUMENTARY Hx Dermatological Problems: Yes Hx Eczema: Yes - MUSCULOSKELETAL/RHEUMATOLOGICAL Hx Musculoskeletal Disorders: No Hx Falls: No - GASTROINTESTINAL Hx Gastrointestinal Disorders: Yes Hx Gastroesophageal Reflux: Yes - GENITOURINARY/GYNECOLOGICAL Hx Genitourinary Disorders: No - PSYCHIATRIC Hx Psychophysiologic Disorder: Yes Hx Anxiety: Yes Hx Depression: Yes Hx Substance Use: No - SURGICAL HISTORY Hx Surgeries: Yes Hx Herniorrhaphy: Yes (2 inguinal hernia) - ANESTHESIA Hx Anesthesia: Yes Hx Anesthesia Reactions: No Hx Malignant Hyperthermia: No Meds Allergies/Adverse Reactions: Allergies Allergy/AdvReac Type Severity Reaction Status Date / Time No Known Allergies Allergy Verified 08/29/17 00:49 - Medications Medications: Current Medications Sodium Chloride (Sodium Chloride 0.9%) 1,000 mls @ 150 mls/hr IV .Q6H40M [facility] Stop: 08/30/17 09:01 Last Admin: 08/29/17 18:01 Dose: 150 mls/hr Morphine Sulfate (Morphine) 2 mg IVP Q4 PRN PRN Reason: Pain, moderate (4-7) Morphine Sulfate (Morphine) 4 mg IVP Q4 PRN PRN Reason: Pain, severe (8-10) Ondansetron HCl (Zofran Inj) 4 mg IVP Q6 PRN PRN Reason: Nausea/Vomiting Pantoprazole Sodium (Protonix Inj) 40 mg IVP DAILY [facility] Last Admin: 08/29/17 10:38 Dose: 40 mg Physical Exam - Constitutional Appears: No Acute Distress - Head Exam Head Exam: ATRAUMATIC - Eye Exam Eye Exam: Normal appearance - ENT Exam ENT Exam: Normal Exam - Neck Exam Neck exam: Positive for: Normal Inspection - Respiratory Exam Respiratory Exam: Clear to Auscultation Bilateral - Cardiovascular Exam Cardiovascular Exam: REGULAR RHYTHM, +S1, +S2 - GI/Abdominal Exam GI & Abdominal Exam: Normal Bowel Sounds, Soft. absent: Tenderness Results - Vital Signs Recent Vital Signs: Last Vital Signs Temp 97.8 F 08/29/17 16:16 Pulse 68 08/29/17 16:16 Resp 18 08/29/17 16:16 BP 122/76 08/29/17 16:16 Pulse Ox 96 08/29/17 16:16 - Labs Result Diagrams: 08/29/17 05:45 08/29/17 05:45 Labs: Laboratory Results - last 24 hr 08/28/17 08/28/17 08/29/17 22:21 22:21 05:45 WBC 9.5 7.8 RBC 4.99 4.36 L Hgb 14.2 12.6 Hct 42.7 37.6 MCV 85.6 86.2 MCH 28.4 28.8 MCHC 33.2 33.4 RDW 15.0 H 15.4 H Plt Count 369 D 338 MPV 8.3 8.0 Neut % (Auto) 80.7 H 75.7 H Lymph % (Auto) 8.3 L 12.4 L [place] % (Auto) 9.6 10.9 H Eos % (Auto) 0.5 0.7 Baso % (Auto) 0.9 0.3 Neut # (Auto) 7.6 H 5.9 Lymph # (Auto) 0.8 L 1.0 [place] # (Auto) 0.9 H 0.9 H Eos # (Auto) 0.0 0.1 Baso # (Auto) 0.1 0.0 Neutrophils % (Manual) 81 H Band Neutrophils % 2 Lymphocytes % (Manual) 10 L Monocytes % (Manual) 7 Platelet Estimate Normal RBC Morphology Normal Sodium 141 Potassium 4.5 Chloride 102 Carbon Dioxide 26 Anion Gap 18 BUN 18 Creatinine 1.2 Est GFR ( Amer) > 60 Est GFR (Non-Af Amer) > 60 Random Glucose 143 H Calcium 9.5 Total Bilirubin 3.9 H AST 271 H ALT 200 H D Alkaline Phosphatase 227 H D Total Protein 8.6 H Albumin 4.1 Globulin 4.5 H Albumin/Globulin Ratio 0.9 L Lipase 44 08/29/17 05:45 WBC RBC Hgb Hct MCV MCH MCHC RDW Plt Count MPV Neut % (Auto) Lymph % (Auto) [place] % (Auto) Eos % (Auto) Baso % (Auto) Neut # (Auto) Lymph # (Auto) [place] # (Auto) Eos # (Auto) Baso # (Auto) Neutrophils % (Manual) Band Neutrophils % Lymphocytes % (Manual) Monocytes % (Manual) Platelet Estimate RBC Morphology Sodium 141 Potassium 4.7 Chloride 102 Carbon Dioxide 27 Anion Gap 17 BUN 18 Creatinine 1.1 Est GFR ( Amer) > 60 Est GFR (Non-Af Amer) > 60 Random Glucose 115 H Calcium 9.0 Total Bilirubin 3.7 H AST 229 H ALT 221 H Alkaline Phosphatase 202 H Total Protein 7.7 Albumin 3.6 Globulin 4.0 H Albumin/Globulin Ratio 0.9 L Lipase - Imaging and Cardiology MRI - abdomen Status: Image reviewed by me, Report reviewed by me CT scan - abdomen Status: Report reviewed by me Assessment & Plan (1) Elevated LFTs Assessment and Plan: Some gallstones seen though no evidence of cholecystitis on imaging. MRCP shows no choledocholithiasis. A large 6.6 cm x 3.1 cm portocaval node seen in this patient with h/o Hodgkins. Surgery note appreciated and agree with Heme/ Onc consultation. Status: Acute
[2017-08-30] MEDS ORDERED: guaiFENesin-DM 600-30 mg ER Tab PO ONE (01:06)
[2017-08-30 06:32] LABS: BASO # 0.1 K/uL (0.0-0.2); BASO % 0.7 % (0.0-2.0); EOS # 0.1 K/uL (0.0-0.7); HEMOGLOBIN 12.6 g/dL (12.0-18.0); LYMPH % 13.7 % (20.0-40.0); MEAN CELL VOLUME 86.8 fl (80.0-94.0); MEAN CORPUSCULAR HEMOGLOBIN 28.6 pg (27.0-31.0); MEAN CORPUSCULAR HGB CONC 32.9 g/dL (33.0-37.0); MEAN PLATELET VOLUME 7.9 fl (7.2-11.7); MONO % 12.9 % (0.0-10.0); NEUT # 5.2 K/uL (1.8-7.0); NEUT % 70.7 % (50.0-75.0); NRBC % 0.1 % (0.0-0.0); RBC 4.4 Mil/uL (4.40-5.90); RED CELL DISTRIBUTION WIDTH 15.3 % (11.5-14.5); WHITE BLOOD COUNT 7.4 K/uL (4.8-10.8)
[2017-08-30] MEDS: Sodium Chloride 0.9% 1,000 ML IV SCH (06:58)
[2017-08-30 07:12] LABS: ALBUMIN 3.9 g/dL (3.5-5.0); ALT/SGPT 223 U/L (21-72); AST/SGOT 139 U/L (17-59); BLOOD UREA NITROGEN 14 mg/dl (9-20); CALCIUM 9.1 mg/dL (8.4-10.2); GFR AFRICAN-AMERICAN > 60; GFR NON-AFRICAN AMERICAN > 60
[2017-08-30 08:16] VITALS: BP 124/79; PULSE 71; RESP 20; TEMP 98.8; O2SAT 96
--- NOTE | 2017-08-30 08:28 | CP.PCM.PN ---
Subjective - Date & Time of Evaluation Date of Evaluation: 08/30/17 Time of Evaluation: 08:26 - Subjective Subjective: pt doing well. nof/c, n/v/d. no pain. tolliquids well. all consult notes appriciated. all imaging reviewed. ct abd/pelvis 08/18/17 demonstrates portocavernol node 6cm now 9cm Objective - Vital Signs/Intake and Output Vital Signs (last 24 hours): Temp Pulse Resp BP Pulse Ox 98.8 F 71 20 124/79 96 08/30/17 08:15 08/30/17 08:15 08/30/17 08:15 08/30/17 08:15 08/30/17 08:15 - Medications Medications: Current Medications Sodium Chloride (Sodium Chloride 0.9%) 1,000 mls @ 150 mls/hr IV .Q6H40M [facility] Stop: 08/30/17 09:01 Last Admin: 08/30/17 06:58 Dose: Not Given Morphine Sulfate (Morphine) 2 mg IVP Q4 PRN PRN Reason: Pain, moderate (4-7) Morphine Sulfate (Morphine) 4 mg IVP Q4 PRN PRN Reason: Pain, severe (8-10) Ondansetron HCl (Zofran Inj) 4 mg IVP Q6 PRN PRN Reason: Nausea/Vomiting Pantoprazole Sodium (Protonix Inj) 40 mg IVP DAILY [facility] Last Admin: 08/29/17 10:38 Dose: 40 mg - Labs Labs: 08/30/17 05:45 08/30/17 05:45 - Constitutional Appears: Well, Non-toxic, No Acute Distress - Head Exam Head Exam: ATRAUMATIC, NORMAL INSPECTION, NORMOCEPHALIC - Eye Exam Eye Exam: EOMI, Normal appearance, PERRL Pupil Exam: NORMAL ACCOMODATION, PERRL - ENT Exam ENT Exam: Mucous Membranes Moist, Normal Exam - Neck Exam Neck Exam: Full ROM, Normal Inspection. absent: Lymphadenopathy - Respiratory Exam Respiratory Exam: Clear to Ausculation Bilateral, NORMAL BREATHING PATTERN - Cardiovascular Exam Cardiovascular Exam: REGULAR RHYTHM, RRR, +S1, +S2. absent: Murmur - GI/Abdominal Exam GI & Abdominal Exam: Soft, Normal Bowel Sounds. absent: Tenderness - Extremities Exam Extremities Exam: Full ROM, Normal Capillary Refill, Normal Inspection. absent : Joint Swelling, Pedal Edema - Back Exam Back Exam: NORMAL INSPECTION - Neurological Exam Neurological Exam: Alert, Awake, CN II-XII Intact, Normal Gait, Oriented x3 - Psychiatric Exam Psychiatric exam: Normal Affect, Normal Mood - Skin Skin Exam: Dry, Intact, Normal Color, Warm Assessment and Plan (1) Cholelithiasis Status: Acute (2) Elevated LFTs Status: Acute (3) Elevated bilirubin Status: Acute (4) DVT prophylaxis Status: Acute - Assessment and Plan (Free Text) Assessment: (1) Cholelithiasis Assessment and Plan: pain control npo ivf gi/surgery mrcp noted no surgical intervention planned Status: Acute (2) Elevated LFTs Assessment and Plan: ?? r/t enlarged lymph node mrcp, f/u b/w, ivf heme/onc, gi, surgery improving Status: Acute (3) Elevated bilirubin Assessment and Plan: ivf monitor Status: Acute (4) DVT prophylaxis Assessment and Plan: scd nad ae hose ambulation Status: Acute 5-h/o lymphoma, enlarged perihepatic lymph node-heme/onc, surgery, ?? outpt bx
--- NOTE | 2017-08-30 09:49 | CP.PCM.PN ---
Subjective - Date & Time of Evaluation Date of Evaluation: 08/30/17 Time of Evaluation: 09:47 - Subjective Subjective: General Surgery Pt seen and examined this AM, reports having mild nausea, (-) vomiting. (-) abdominal pain today. Afebrile. Pt requesting toradol PO rx when he gets discharged for abdominal pain he may have in the future. Vitals and labs noted. T bili improving. MRCP with no evidence of choledocolithiasis, obstruction, or cholecystitis. PE Gen: Pt laying in bed in NAD Skin: warm and dry, (-) jaundice Cardio: s1s2 rrr Lungs: CTA bilaterally Abd: Soft NTND Extr: (-) calf tenderness bilaterally A/P No surgical intervention at this time Advance diet as tolerate per medicine Objective - Vital Signs/Intake and Output Vital Signs (last 24 hours): Temp Pulse Resp BP Pulse Ox 98.8 F 71 20 124/79 96 08/30/17 08:15 08/30/17 08:15 08/30/17 08:15 08/30/17 08:15 08/30/17 08:15 - Medications Medications: Current Medications Morphine Sulfate (Morphine) 2 mg IVP Q4 PRN PRN Reason: Pain, moderate (4-7) Morphine Sulfate (Morphine) 4 mg IVP Q4 PRN PRN Reason: Pain, severe (8-10) Ondansetron HCl (Zofran Inj) 4 mg IVP Q6 PRN PRN Reason: Nausea/Vomiting Pantoprazole Sodium (Protonix Inj) 40 mg IVP DAILY [facility] Last Admin: 08/29/17 10:38 Dose: 40 mg - Labs Labs: 08/30/17 05:45 08/30/17 05:45
--- NOTE | 2017-08-30 10:38 | CP.PCM.CON ---
History of Present Illness - History of Present Illness History of Present Illness: 51 year old male with a history of hodgkins lymphoma dx 2015 s/p chemotherapy, admitted with abdominal pain and transaminitis, found to have retroperitoneal lymphadenopathy. The patient has followed with Dr. Bojorquez and Angel for his oncologic care. 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 A CT A/P revealed cholelithiasis, a 10cm abdominal mass with retroperitoneal lymphadenopathy. Past medical history: hodgkins lymphoma Past surgical history: Denies Family history: Denies hematologic and oncologic problems Social history: Denies tobacco, alcohol, and illicit drug use. Allergies: NKA Review of systems: All remaining review of systems including HEENT, cardiovascular, respiratory, gastrointestinal, genitourinary, musculoskeletal, dermatologic, neurologic, and psychiatric are negative unless mentioned in the HPI. Past Patient History - Past Medical History & Family History Past Medical History?: Yes - Past Social History Smoking Status: Never Smoked - CARDIAC Hx Cardiac Disorders: No Hx Pacemaker: No - PULMONARY Hx Respiratory Disorders: Yes Hx Pneumonia: Yes - NEUROLOGICAL Hx Neurological Disorder: No Hx Paralysis: No - HEENT Hx HEENT Problems: Yes (GLASSES) - RENAL Hx Chronic Kidney Disease: No - ENDOCRINE/METABOLIC Hx Endocrine Disorders: No - HEMATOLOGICAL/ONCOLOGICAL Hx Blood Transfusions: No Hx Blood Transfusion Reaction: No - INTEGUMENTARY Hx Dermatological Problems: Yes Hx Eczema: Yes - MUSCULOSKELETAL/RHEUMATOLOGICAL Hx Musculoskeletal Disorders: No Hx Falls: No - GASTROINTESTINAL Hx Gastrointestinal Disorders: Yes Hx Gastroesophageal Reflux: Yes - GENITOURINARY/GYNECOLOGICAL Hx Genitourinary Disorders: No - PSYCHIATRIC Hx Psychophysiologic Disorder: Yes Hx Anxiety: Yes Hx Depression: Yes Hx Substance Use: No - SURGICAL HISTORY Hx Surgeries: Yes Hx Herniorrhaphy: Yes (2 inguinal hernia) - ANESTHESIA Hx Anesthesia: Yes Hx Anesthesia Reactions: No Hx Malignant Hyperthermia: No Meds Home Medications: Home Medication List Medication Instructions Recorded Confirmed Type Ketorolac Tromethamine [Toradol] 10 mg PO Q6 PRN #20 tab 08/30/17 Rx Allergies/Adverse Reactions: Allergies Allergy/AdvReac Type Severity Reaction Status Date / Time No Known Allergies Allergy Verified 08/29/17 00:49 - Medications Medications: Current Medications Morphine Sulfate (Morphine) 2 mg IVP Q4 PRN PRN Reason: Pain, moderate (4-7) Morphine Sulfate (Morphine) 4 mg IVP Q4 PRN PRN Reason: Pain, severe (8-10) Ondansetron HCl (Zofran Inj) 4 mg IVP Q6 PRN PRN Reason: Nausea/Vomiting Pantoprazole Sodium (Protonix Inj) 40 mg IVP DAILY [facility] Last Admin: 08/30/17 10:03 Dose: 40 mg Physical Exam - Head Exam Head Exam: ATRAUMATIC - Eye Exam Eye Exam: Normal appearance - ENT Exam ENT Exam: Mucous Membranes Dry - Respiratory Exam Respiratory Exam: NORMAL BREATHING PATTERN - Cardiovascular Exam Cardiovascular Exam: +S1, +S2 - GI/Abdominal Exam GI & Abdominal Exam: Normal Bowel Sounds - Extremities Exam Extremities exam: Positive for: normal inspection - Neurological Exam Neurological exam: Oriented x3 - Psychiatric Exam Psychiatric exam: Normal Affect, Normal Mood - Skin Skin Exam: Warm Results - Vital Signs Recent Vital Signs: Last Vital Signs Temp 98.8 F 08/30/17 08:15 Pulse 71 08/30/17 08:15 Resp 20 08/30/17 08:15 BP 124/79 08/30/17 08:15 Pulse Ox 96 08/30/17 08:15 - Labs Result Diagrams: 08/30/17 05:45 08/30/17 05:45 Labs: Laboratory Results - last 24 hr 08/30/17 08/30/17 05:45 05:45 WBC 7.4 RBC 4.40 Hgb 12.6 Hct 38.2 MCV 86.8 MCH 28.6 MCHC 32.9 L RDW 15.3 H Plt Count 301 MPV 7.9 Neut % (Auto) 70.7 Lymph % (Auto) 13.7 L [place] % (Auto) 12.9 H Eos % (Auto) 2.0 Baso % (Auto) 0.7 Neut # (Auto) 5.2 Lymph # (Auto) 1.0 [place] # (Auto) 1.0 H Eos # (Auto) 0.1 Baso # (Auto) 0.1 Sodium 142 Potassium 4.7 Chloride 102 Carbon Dioxide 32 H Anion Gap 13 BUN 14 Creatinine 0.9 Est GFR ( Amer) > 60 Est GFR (Non-Af Amer) > 60 Random Glucose 92 Calcium 9.1 Total Bilirubin 1.9 H AST 139 H D ALT 223 H Alkaline Phosphatase 215 H Total Protein 7.7 Albumin 3.9 Globulin 3.8 Albumin/Globulin Ratio 1.0 Assessment & Plan (1) Abdominal mass Assessment and Plan: with retroperitoneal lymphadenopathy concerning for recurrent lymphoma outpatient biopsy and f/u with primary oncologist Status: Acute (2) Anemia Assessment and Plan: chronic disease ? recurrent lymphoma Status: Acute (3) Hodgkin lymphoma Assessment and Plan: ? recurrent disease outpatient biopsy Thank you for this interesting consult. Status: Acute
--- NOTE | 2017-08-30 10:50 | CP.PCM.PN ---
Subjective - Date & Time of Evaluation Date of Evaluation: 08/30/17 Time of Evaluation: 10:48 - Subjective Subjective: Surgery Pt seen and examined. No acute events. Pain controlled. Tolerating CLD. Reports nausea. Denies vomiting, diarrhea, fever. MRCP done yesterday. Pt aware of result. Objective - Vital Signs/Intake and Output Vital Signs (last 24 hours): Temp Pulse Resp BP Pulse Ox 98.8 F 71 20 124/79 96 08/30/17 08:15 08/30/17 08:15 08/30/17 08:15 08/30/17 08:15 08/30/17 08:15 - Medications Medications: Current Medications Morphine Sulfate (Morphine) 2 mg IVP Q4 PRN PRN Reason: Pain, moderate (4-7) Morphine Sulfate (Morphine) 4 mg IVP Q4 PRN PRN Reason: Pain, severe (8-10) Ondansetron HCl (Zofran Inj) 4 mg IVP Q6 PRN PRN Reason: Nausea/Vomiting Pantoprazole Sodium (Protonix Inj) 40 mg IVP DAILY [facility] Last Admin: 08/30/17 10:03 Dose: 40 mg - Labs Labs: 08/30/17 05:45 08/30/17 05:45 - Constitutional Appears: No Acute Distress - Head Exam Head Exam: ATRAUMATIC, NORMAL INSPECTION, NORMOCEPHALIC - Eye Exam Eye Exam: EOMI, Normal appearance, PERRL Pupil Exam: NORMAL ACCOMODATION, PERRL - Neck Exam Neck Exam: Full ROM, Normal Inspection. absent: Lymphadenopathy - Respiratory Exam Respiratory Exam: NORMAL BREATHING PATTERN - Cardiovascular Exam Cardiovascular Exam: REGULAR RHYTHM - GI/Abdominal Exam GI & Abdominal Exam: Soft, Tenderness, Normal Bowel Sounds. absent: Distended, Firm, Guarding, Rigid Additional comments: abd TTP. - Extremities Exam Extremities Exam: Full ROM, Normal Capillary Refill, Normal Inspection. absent : Joint Swelling, Pedal Edema - Back Exam Back Exam: NORMAL INSPECTION - Neurological Exam Neurological Exam: Alert, Awake, CN II-XII Intact, Normal Gait, Oriented x3 - Psychiatric Exam Psychiatric exam: Normal Affect, Normal Mood - Skin Skin Exam: Dry, Intact, Normal Color, Warm Assessment and Plan - Assessment and Plan (Free Text) Assessment: Cholelithiasis with elevated LFT LFT trending down -Heme onc rec -No surgical intervention at this time. -Advance diet as tolerated DW Surgical team.
--- NOTE | 2017-08-30 13:32 | CP.PCM.DIS ---
Provider - Provider Date of Admission: 08/28/17 23:50 Attending physician: Rayo Bhandari MD Time Spent in preparation of Discharge (in minutes): 15 Diagnosis - Discharge Diagnosis (1) Cholelithiasis Status: Acute (2) Elevated LFTs Status: Acute (3) Elevated bilirubin Status: Acute (4) DVT prophylaxis Status: Acute Hospital Course - Lab Results Lab Results: Most Recent Lab Values WBC 7.4 K/uL (4.8-10.8) 08/30/17 05:45 RBC 4.40 Mil/uL (4.40-5.90) 08/30/17 05:45 Hgb 12.6 g/dL (12.0-18.0) 08/30/17 05:45 Hct 38.2 % (35.0-51.0) 08/30/17 05:45 MCV 86.8 fl (80.0-94.0) 08/30/17 05:45 MCH 28.6 pg (27.0-31.0) 08/30/17 05:45 MCHC 32.9 g/dL (33.0-37.0) L 08/30/17 05:45 RDW 15.3 % (11.5-14.5) H 08/30/17 05:45 Plt Count 301 K/uL (130-400) 08/30/17 05:45 MPV 7.9 fl (7.2-11.7) 08/30/17 05:45 Neut % (Auto) 70.7 % (50.0-75.0) 08/30/17 05:45 Lymph % (Auto) 13.7 % (20.0-40.0) L 08/30/17 05:45 [place] % (Auto) 12.9 % (0.0-10.0) H 08/30/17 05:45 Eos % (Auto) 2.0 % (0.0-4.0) 08/30/17 05:45 Baso % (Auto) 0.7 % (0.0-2.0) 08/30/17 05:45 Neut # (Auto) 5.2 K/uL (1.8-7.0) 08/30/17 05:45 Lymph # (Auto) 1.0 K/uL (1.0-4.3) 08/30/17 05:45 [place] # (Auto) 1.0 K/uL (0.0-0.8) H 08/30/17 05:45 Eos # (Auto) 0.1 K/uL (0.0-0.7) 08/30/17 05:45 Baso # (Auto) 0.1 K/uL (0.0-0.2) 08/30/17 05:45 Neutrophils % (Manual) 81 % (42-75) H 08/28/17 22:21 Band Neutrophils % 2 % (0-2) 08/28/17 22:21 Lymphocytes % (Manual) 10 % (20-50) L 08/28/17 22:21 Monocytes % (Manual) 7 % (0-10) 08/28/17 22:21 Platelet Estimate Normal (NORMAL) 08/28/17 22:21 RBC Morphology Normal (NORMAL) 08/28/17 22:21 Sodium 142 mmol/l (132-148) 08/30/17 05:45 Potassium 4.7 MMOL/L (3.6-5.0) 08/30/17 05:45 Chloride 102 mmol/L (98-107) 08/30/17 05:45 Carbon Dioxide 32 mmol/L (22-30) H 08/30/17 05:45 Anion Gap 13 (10-20) 08/30/17 05:45 BUN 14 mg/dl (9-20) 08/30/17 05:45 Creatinine 0.9 mg/dl (0.8-1.5) 08/30/17 05:45 Est GFR ( Amer) > 60 08/30/17 05:45 Est GFR (Non-Af Amer) > 60 08/30/17 05:45 Random Glucose 92 mg/dL (75-110) 08/30/17 05:45 Calcium 9.1 mg/dL (8.4-10.2) 08/30/17 05:45 Total Bilirubin 1.9 mg/dl (0.2-1.3) H 08/30/17 05:45 AST 139 U/L (17-59) H D 08/30/17 05:45 ALT 223 U/L (21-72) H 08/30/17 05:45 Alkaline Phosphatase 215 U/L (38-126) H 08/30/17 05:45 Total Protein 7.7 G/DL (6.3-8.2) 08/30/17 05:45 Albumin 3.9 g/dL (3.5-5.0) 08/30/17 05:45 Globulin 3.8 gm/dL (2.2-3.9) 08/30/17 05:45 Albumin/Globulin Ratio 1.0 (1.0-2.1) 08/30/17 05:45 Lipase 44 U/L (23-300) 08/28/17 22:21 - Hospital Course Hospital Course: surgery, heme/onc, gi ivf and po as hung imaging-ct, mri, us Discharge Exam - Head Exam Head Exam: ATRAUMATIC, NORMAL INSPECTION, NORMOCEPHALIC Discharge Plan - Discharge Medications Prescriptions: Ketorolac Tromethamine [Toradol] 10 mg PO Q6 PRN #20 tab PRN Reason: Pain, Severe (8-10) - Follow Up Plan Condition: STABLE Disposition: HOME/ ROUTINE Instructions: Gallstones (DC) Additional Instructions: final dx-cholelithaisis, perihepatic lymph node, h/o lymphoma hung po , cleared by specialists for dc. pt to see rmg thurs and heme/onc renetta. outpt bx of lymph node trend lft outpt follow up with primary MD and GI doctor 1 week Referrals: Aston Majano MD [Staff Provider] - Valente Lomax MD [Family Provider] - Reggie Courtney MD [Staff Provider] - Benny Gamble MD [Staff Provider] -
[2017-08-30 13:36] LABS: HEPATITIS B SURFACE AG Negative (NEGATIVE)
[2017-08-30 13:41] LABS: HEPATITIS A IGM NEGATIVE (NEGATIVE); HEPATITIS B CORE AB NEGATIVE (NEGATIVE)
[2017-08-30 13:53] LABS: HEPATITIS C ANTIBODY NEGATIVE (NEGATIVE)
--- NOTE | 2017-08-30 14:07 | CP.PCM.PN ---
Subjective - Date & Time of Evaluation Date of Evaluation: 08/30/17 Time of Evaluation: 09:00 - Subjective Subjective: Patient feeling better without abdominal pain. Bili much better Objective - Vital Signs/Intake and Output Vital Signs (last 24 hours): Temp Pulse Resp BP Pulse Ox 98.8 F 71 20 124/79 96 08/30/17 08:15 08/30/17 08:15 08/30/17 08:15 08/30/17 08:15 08/30/17 08:15 - Labs Labs: 08/30/17 05:45 08/30/17 05:45 - Head Exam Head Exam: ATRAUMATIC - Eye Exam Eye Exam: Normal appearance - Neck Exam Neck Exam: Full ROM - Respiratory Exam Respiratory Exam: Clear to Ausculation Bilateral - Cardiovascular Exam Cardiovascular Exam: REGULAR RHYTHM - GI/Abdominal Exam GI & Abdominal Exam: Soft, Normal Bowel Sounds. absent: Tenderness Assessment and Plan (1) Elevated LFTs Assessment & Plan: Pain and LFT elevation may have been related to portocaval mass, a passed stone or some other cause. No evidence on imaging of retained CBD stone or cholecystitis. Appreciate surgical note and when discharged will follow as outpatient Status: Acute
== END 2017-08-30 13:24 | disposition home or self-care (01) | DRG 207 ==
LOC: H.ER 21:15 → H.ERHOLD 23:50 → H.MEDSURG1 08-29 03:32
PROVIDERS: ADMIT Family Medicine; ATTEND Family Medicine
DX: K80.20 Calculus of gallbladder without cholecystitis without obstruction (principal); C81.90 Hodgkin lymphoma, unspecified, unspecified site; D63.8 Anemia in other chronic diseases classified elsewhere; K21.9 Gastro-esophageal reflux disease without esophagitis; R79.89 Other specified abnormal findings of blood chemistry; F41.9 Anxiety disorder, unspecified; Z92.21 Personal history of antineoplastic chemotherapy

== ENCOUNTER 2017-09-13 10:24 | Day surgery (SDC) | payer MEDICAID ==
[2017-09-13] MEDS ORDERED: Sodium Chloride 0.9% 100 ML ONE (11:13)
[2017-09-13 12:46] VITALS: BMI 30.3
[2017-09-13] MEDS ORDERED: Propofol 10 mg/ml Inj (20 ML) ONE (13:14)
[2017-09-13] MEDS ORDERED: Midazolam 2 MG/2 ML VIAL ONE (13:15)
[2017-09-13] MEDS ORDERED: LIDOCAINE 2% 10ML 20 MG/ML VIAL IJ ONE (13:26)
[2017-09-13] MEDS ORDERED: Absorbable Gelatin Sponge Size 12-7 ONE (13:27)
--- NOTE | 2017-09-13 13:49 | CP.SDSHP ---
Same Day Surgery H & P - History Proposed Procedure: CT guided core biopsy of portacaval mass Pre-Op Diagnosis: lymphoma, portacaval mass - Allergies Allergies: Allergies No Known Allergies Allergy (Verified 08/29/17 00:49) - Physical Exam Vital Signs: Vital Signs 09/13/17 09/13/17 09/13/17 12:36 12:44 13:10 Temperature 98.6 F 97.4 F L Pulse Rate 67 67 67 Respiratory 18 18 Rate Blood Pressure 120/73 140/78 O2 Sat by Pulse 97 100 Oximetry Mental Status: Alert & Oriented x3 Neuro: WNL Heart: WNL Lungs: WNL GI: WNL - Impression Impression: Pt with h/o lymphoma and large portacaval mass. Plan CT guided core biopsy. Informed consent obtained. Pt. Evaluated Today:Candidate for Anesthesia & Procedure: Yes (ASA 3 Malampati 3) - Date & Time Date: 09/13/17 Time: 13:00 Short Stay Discharge - Short Stay Discharge Admitting Diagnosis/Reason for Visit: PORTACAVAL MASS HX OF HODGKINS LYMPHOMA Disposition: HOME/ ROUTINE Referrals: Valente Lomax MD [Primary Care Provider] -
--- NOTE | 2017-09-13 13:51 | PCM.SURG1 ---
Surgeon's Initial Post Op Note - Surgeon's Notes Surgeon: Claudy Laws MD Blanket Inspector: NONE Type of Anesthesia: IV Sedation Pre-Operative Diagnosis: lymphoma, portacaval mass Operative Findings: CT showed a large portacaval mass Post-Operative Diagnosis: lymphoma, portacaval mass Operation Performed: CT guided core biopsy of portacaval mass Specimen/Specimens Removed: 18 gauge x 8 Estimated Blood Loss: EBL {In ML}: 0 Blood Products Given: N/A Drains Used: No Drains Post-Op Condition: Good Date of Surgery/Procedure: 09/13/17 Time of Surgery/Procedure: 13:45
[2017-09-13] MEDS ORDERED: Sodium Chloride 0.9% 1,000 ML IV SCH (14:00)
[2017-09-13] MEDS ORDERED: Sodium Chloride 0.9% 1,000 ML IV ONE (14:30)
[2017-09-13 14:37] VITALS: RESP 18
[2017-09-13 15:07] VITALS: O2SAT 98
[2017-09-13 16:09] VITALS: BP 105/78; PULSE 68; TEMP 98
== END 2017-09-13 16:06 | disposition home or self-care (01) ==
LOC: H.OPSURG 10:24
PROVIDERS: ATTEND Internal Medicine Hematology & Oncology
DX: R22.2 Localized swelling, mass and lump, trunk (principal); Z85.71 Personal history of Hodgkin lymphoma
CPT/HCPCS: 49180; 88305; J2250; J3010; J7030

== ENCOUNTER 2017-10-21 10:38 | Day surgery (SDC) | payer MEDICAID ==
[2017-10-17 11:06] VITALS: BMI 26.4
--- NOTE | 2017-10-21 12:13 | CP.SDSHP ---
Same Day Surgery H & P - History Proposed Procedure: Laparoscopic Cholecystectomy Pre-Op Diagnosis: Symptomatic Cholelithiasis - Previous Medical/Surgical History Misc: Other (Hodgkin's Lymphoma (remission), Anxiety, Depression, GERD) Pain: 0. No Pain Previous Surgical History: R inguinal hernia repair - Allergies Allergies: Allergies No Known Allergies Allergy (Verified 10/21/17 11:18) - Physical Exam Vital Signs: Vital Signs 10/21/17 10/21/17 11:36 11:41 Temperature 98.1 F Pulse Rate 66 66 Respiratory 18 Rate Blood Pressure 121/72 O2 Sat by Pulse 99 Oximetry Mental Status: Alert & Oriented x3 Neuro: WNL Heart: WNL Lungs: WNL GI: WNL - {Optional Preform as Required} Abdomen: WNL - Impression Impression: 51 yo M w/ symptomatic cholelithiasis, for elective cholecystectomy Pt. Evaluated Today:Candidate for Anesthesia & Procedure: Yes - Date & Time Date: 10/21/17 Time: 12:13 Short Stay Discharge - Short Stay Discharge Admitting Diagnosis/Reason for Visit: K80.20 Disposition: HOME/ ROUTINE Referrals: Valente Lomax MD [Primary Care Provider] - Reggie Courtney MD [Staff Provider] - Follow-up: 1-2weeks Additional Instructions (Diet, Activity): Make an appointment to see Dr. Courtney in office in 2 weeks. Resume regular diet and light activities. No heavy lifting >10lbs for 6 weeks. Take percocet as needed for pain. You may shower, no soaking or bathing.
[2017-10-21] MEDS ORDERED: Bupivacaine HCl 0.25% PF (30 ml) Inj ONE (12:17)
[2017-10-21] MEDS ORDERED: Etomidate 20 mg/10ml Inj IV ONE (12:27)
[2017-10-21] MEDS ORDERED: Lidocaine 4% (Laryng-O-Jet) Kit MM ONE (12:27)
[2017-10-21] MEDS ORDERED: Succinylcholine 200 mg/10 ml Inj IV ONE (12:27)
[2017-10-21] MEDS ORDERED: Rocuronium 10 mg/ml (5 ml) ONE (12:27)
[2017-10-21] MEDS ORDERED: Phenylephrine 10 mg/ml Inj ONE (12:32)
[2017-10-21] MEDS ORDERED: Lactated Ringer's 1,000 ML IV ONE ×2 (12:45→13:19)
[2017-10-21] MEDS ORDERED: Midazolam 2 MG/2 ML VIAL ONE (12:48)
[2017-10-21] MEDS ORDERED: ceFAZolin IV 2 gm in Dextrose 2 GM/50 ML BAG IVPB ONE (12:50)
[2017-10-21] MEDS ORDERED: Propofol 10 mg/ml Inj (20 ML) ONE (12:51)
[2017-10-21] MEDS ORDERED: Dexamethasone 4 mg/1 ml ONE (13:06)
[2017-10-21] MEDS ORDERED: Neostigmine 1:1000 (1 mg/ml) Inj ONE (13:22)
--- NOTE | 2017-10-21 13:55 | PCM.SURG1 ---
Surgeon's Initial Post Op Note - Surgeon's Notes Surgeon: Dr. Courtney Boiler Fitter: Dr. Stein, Dr. Del Valle PGY4 Type of Anesthesia: General Endo Anesthesia Administered By: Sadaf Pre-Operative Diagnosis: Symptomatic Cholelithiasis Operative Findings: same Post-Operative Diagnosis: same Operation Performed: Laparoscopic Cholecystectomy Specimen/Specimens Removed: gallbladder Estimated Blood Loss: EBL {In ML}: 5 Blood Products Given: N/A Drains Used: No Drains Post-Op Condition: Good Date of Surgery/Procedure: 10/21/17 Time of Surgery/Procedure: 13:55
[2017-10-21] MEDS ORDERED: Oxycodone/Acetaminophen 5/325 mg Tab PO PRN (13:56)
[2017-10-21] MEDS ORDERED: HYDROmorphone 1 mg/ml ISec IVP PRN (13:58)
[2017-10-21] MEDS ORDERED: Lactated Ringer's 1,000 ML IV SCH (14:00)
[2017-10-21 17:43] VITALS: RESP 18
[2017-10-21 18:54] VITALS: BP 112/68; PULSE 82; TEMP 98; O2SAT 96
--- NOTE | 2017-10-24 08:34 | OP ---
Copied To: Reggie Courtney MD Attending MD: Reggie Courtney MD PROCEDURE DATE: 10/21/17 PREOPERATIVE DIAGNOSIS: Symptomatic cholelithiasis. POSTOPERATIVE DIAGNOSIS: Symptomatic cholelithiasis. PROCEDURE: Laparoscopic cholecystectomy. SURGEON: Reggie Courtney MD ROTARY SHEAR WORKER HELPER: Emil. SECOND ROTARY SHEAR WORKER HELPER: Kathy Del Valle DO ANESTHESIA: General endotracheal intubation. ANESTHESIOLOGIST: Harley Talavrea MD INTRAVENOUS FLUID INTAKE: Crystalloids. ESTIMATED BLOOD LOSS: 10 mL. INTRAOPERATIVE FINDINGS: Cholelithiasis and chronic cholecystitis. SPECIMEN: Gallbladder with stones. BRIEF HISTORY: Mr. Dietrich is a very pleasant 51-year-old gentleman who was initially seen by me in [facility]. Subsequent to that, the patient was discharged home and re-presented to the office with complaints of right upper quadrant pain. On ultrasound, the patient was found to have cholelithiasis, but no evidence of cholecystitis. All the risks and benefits of the procedure were explained to the patient. With the patient having full understanding of the all the risks and benefits involved, informed consent was obtained, and the patient was taken to the operating room for above-stated procedure. DESCRIPTION OF PROCEDURE: The patient was brought into the operating room and placed supine on the operating room table. Bilateral Flowtron boots were applied to the patient's lower extremities. After successful induction of anesthesia and successful endotracheal intubation by the anesthesia team, the patient's abdomen was shaved and prepped with ChloraPrep stick and draped in a standard surgical fashion. Prior to the beginning of the procedure, time-out was called in the room and everyone in the room were in agreement. Using a Veress needle, the patient's abdomen was entered at the umbilicus, and pneumoperitoneum was achieved with good opening pressures. Once this was accomplished, using a 11-blade scalpel knife, approximately 1-cm incision was made in the umbilicus longitudinally and subsequent to that, a 11-mm trocar was introduced into the patient's abdomen. Subsequent to that, a 5-mm 0-degree scope was introduced into the patient's abdomen. Abdomen was inspected. We were able to visualize some omental adhesions to the gallbladder. At this point in time, attention was turned to the subxiphoid area. Using a 11-blade scalpel knife, approximately 5-mm incision was made in a transverse fashion. Subsequent to that, a 5-mm trocar was introduced into the patient's abdomen. Then, attention was turned to the right side of the patient's abdomen. Using a 11-blade scalpel knife, two 5-mm incisions were made in a transverse fashion in the right side of the abdomen and subsequent to that, another two 5-mm trocars were introduced into the patient's abdomen. At this point in time, gallbladder was grasped to the fundus and infundibulum and using Maryland dissector, omental adhesions were teased out. Subsequent to that, cystic duct and cystic artery were dissected out, and a critical view of safety was achieved. At this point in time, cystic duct was clipped with two clips proximal, one distal and transected with laparoscopic scissor. Same thing was done for the cystic artery. It was clipped with two clips proximal, one distal, and transected with laparoscopic scissor. At this point in time, upon further dissection, we encountered the serial branch of the cystic artery that was dissected out with Maryland dissector and clipped with two clips proximal, one distal, and transected with laparoscopic scissor. At this point in time, gallbladder was dissected off the gallbladder fossa using hook electrical cautery. Once the gallbladder was completely freed up from the gallbladder fossa, an EndoCatch bag was introduced into the patient's abdomen. Gallbladder was placed inside of the bag, and the bag was closed. At this point in time, gallbladder fossa was inspected for hemostasis. Hemostasis was confirmed. Gallbladder fossa and abdominal cavity were irrigated with sterile saline, and the fluid was suctioned out. At this point in time, a 11-mm trocar together with EndoCatch bag and gallbladder were removed from the patient's abdomen and passed off to the [facility] as a specimen. Fascial layer at the umbilical port site was closed with one interrupted 0 Vicryl suture and UR-6 needle. Subsequent to that, the patient's abdomen was fully desufflated. The rest of the trocars were removed from the patient's abdomen. The skin was closed with a 4-0 Monocryl suture in a running subcuticular fashion. At the end of the procedure, the incision sites were infiltrated with 0.5% Marcaine anesthetic. The patient's abdomen was washed and dried, and Dermabond was applied to the site of the incisions. The patient was successfully extubated by the anesthesia team, transferred to the stretcher, and taken to the recovery room in a stable condition. At the end of the procedure, all instrument counts, needles, and sponges were correct. Reggie Courtney MD
== END 2017-10-21 19:15 | disposition home or self-care (01) ==
LOC: H.OPSURG 10:38
PROVIDERS: ATTEND Surgery
DX: K80.20 Calculus of gallbladder without cholecystitis without obstruction (principal); K21.9 Gastro-esophageal reflux disease without esophagitis
CPT/HCPCS: 36415; 47562; 86850; 86900; 88304; J0330; J0690; J1100; J1170; J1885; J2001; J2250; J2370; J2405; J2704; J2710; J2765; J3010; J7120